=== PATIENT | male | born 1960 | race Caucasian/White ===

== ENCOUNTER 2016-10-01 05:41 | Day surgery (SDC) | payer OTHER ==
[~2016-10-01 05:41] MED LIST: ADAL40KI SQ; ALBU6.7H INH; ASPI-973 PO; CEFA1PIG IV; CHOL100045 PO; DOCU-41 PO; FOLI1CAP PO; FRSM80T PO; HYDR-4003 PO; HYDR2TAB28 PO; LACT1CAP73 PO; METO25TA99 PO; MULT-1018 PO; ONDA-53 PO; PANT40TA3 PO; SEVE800T10 PO; WARF2TAB PO
--- NOTE | 2016-10-01 09:15 | NUR ---
pt here for peripherally inserted central catheter removal. bedside finger stick performed at bedside 1.5. procedure performed at bedside by franc araujo at bedside. pressure held for 5 minutes, pt linda well. pt instructed to hold pressure if sudden pain or lump develop at site and then to call 911. pt agrees to understanding and following d/c instructions. vs 98.6 oral temp, 96%spo2, 87 hr, 130/79 bp.
--- NOTE | 2016-10-01 15:01 | DRSVH ---
PROCEDURE: Right PIC catheter removal. INDICATIONS: INFUSIONS FINISHED COMPARISON: None. TECHNIQUE: Informed, written consent from the patient was obtained prior to the procedure. The right chest wall PICC catheter stitches were cut, and the catheter was removed. Pressure was applied for he mostasis. FLUOROSCOPY TIME: 0 minutes IMPRESSION: Right chest wall PICC catheter removal. Dictated by: Aden Mejia M.D. on 10/01/2016 at 14:58 Approved by: Aden Mejia M.D. on 10/01/2016 at 14:59
== END 2016-10-01 23:59 | disposition home or self-care (01) ==
LOC: SOUO 05:41
PROVIDERS: ATTEND Radiology Diagnostic Radiology
DX: Z45.2 Encounter for adjustment and management of vascular access device (principal); Z86.19 Personal history of other infectious and parasitic diseases; Z95.2 Presence of prosthetic heart valve

== ENCOUNTER 2016-10-08 12:37 | Inpatient (IN) | payer OTHER ==
[~2016-10-08] VITALS: Ht 175.3 cm; Wt 87.0 kg
[2016-10-08 13:43] VITALS: BP 137/84; PULSE 85; RESP 22; O2SAT 97
[2016-10-08] MEDS ORDERED: Heparin 5,000 Unit/mL Inj IVPUSH ONE (13:50)
[2016-10-08] MEDS ORDERED: FOLI1CAP4 PO (13:58)
--- NOTE | 2016-10-08 13:58 | NUR ---
Admission Pt arrived to [facility] approx 13:45, accompanied by significant other. A&Ox3, denies pain/discomfort. Stat PTT ordered and then will initiate heparin gtt
[2016-10-08] MEDS ORDERED: Alum-Mag Hydrox-Simeth 30 mL Suspension PO PRN (15:40)
[2016-10-08] MEDS ORDERED: HYDROcodone-APAP 5-325 mg Tablet PO PRN (15:40)
[2016-10-08] MEDS ORDERED: Polyethylene Glycol (PEG) 17 Gm Powder PO PRN (15:40)
--- NOTE | 2016-10-08 16:12 | HP ---
[address] [address] HISTORY AND PHYSICAL PATIENT: NICHOL GARCÍA : 1960 MR#: [id number] ADMIT: 10/08/2016 JOB ID: [id number] DATE OF SERVICE: 10/08/2016 CARDIOLOGY CONSULTATION: CHIEF COMPLAINT: Subtherapeutic INR. HISTORY OF PRESENT ILLNESS: The patient is extremely complicated man. He is 56 years old. He has multiple cardiovascular issues including paroxysmal atrial fibrillation, history of VF cardiac arrest, intermittent complete heart block, ankylosing spondylitis, dual-chamber ICD, chronic immunosuppression of Humira. He was coughing since June 10. He was having worsening orthopnea, PND and pulmonary congestion. He contacted me on July 26 complaining of cough productive of white phlegm and then, he had a GERA, which showed endocarditis. He had hospitalization at [facility] August 05 through August 09, and was transferred to [facility] for valve replacement. His cultures grew Staph lugdunensis. So, basically, he had mechanical prosthetics in mitral and aortic positions. His goal INR is between 2.5 and 3.5. He also has AFib and cardiomyopathy. His EF is about 35%. He was seen in clinic on Tuesday, and his INR was 1.4. His warfarin was doubled from 4 mg daily to 8 mg daily. Today, he comes back in followup, and his INR is 1.5. It is a little bit puzzling why his INR is low, especially since on the 24 of September his rifampin and cefazolin were discontinued. So, technically, would actually expect INR to go up and instead it actually went down. It is a little bit not clear why. So, he denies any dyspnea on exertion but he does report significant fatigue. He has end-stage renal disease. He is not eligible for low-molecular weight heparin bridge, so we will be hospitalizing him for heparin bridge until we figure out the best way to achieve therapeutic INR. PAST MEDICAL HISTORY: 1. Complete heart block August 2012. Status post Biotronik dual-chamber permanent pacemaker. 2. VF arrest June 12, 2014. As a result, he was upgraded to a dual-chamber ICD, so he has three wires; right atrial Biotronik wire, right ventricular Biotronik pacing wire that has been capped, and a right ventricular defibrillator wire implanted June 12, 2014, and he has a Medtronic ICD generator. He has never been cathed. He had noninvasive ischemic evaluation January 01, 2016, which showed normal graded exercise stress test with myocardial perfusion imaging. No ischemia or prior infarct. Normal wall motion and LV systolic function. Decremental conduction at rapid rate, where he went from ventricularly sensed to ventricularly paced. 3. Ankylosing spondylitis previously on Humira, no on opioid pain meds. 4. 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 s/p extraction of previously placed pacing system and 3 wires; implant of left subpectoral ICD with tunneled epicardial pacing leads and shock coil; s/p DFT at 6. Paroxysmal atrial fibrillation, became persistent post op 7. Chronic RV pacing. 8. Chronic iritis. 9. cardiomyopathy - last EF 30-35% 10. ARF - after long heart surgery - on hemodialysis 11. anemia SOCIAL HISTORY: He is a lifetime nonsmoker but he has had some secondhand smoke exposure. He is accompanied by his . He works full-time in the [employer] department. He resides here in [place]. FAMILY HISTORY: Father with lung disease. He at age 56. Half brother with liver disease. Mother with heart disease. She at age 72. ALLERGIES: No known drug allergies. 1. Lasix 80 mg 3 times a day. 2. Metoprolol tartrate. He takes 25 mg in the morning and 50 mg at night. 3. pantoprazole and Vicodin as needed. 4. warfarin 8 mg every night. REVIEW OF SYSTEMS: No chest pain. No palpitations. + fatigue. + weight loss; dysgusia and poor appetitie. No bright red blood per rectum. No hematuria; very small residual urine production. No rash. No muscle weakness. + dizziness. No anxiety. He does have cough, shortness of breath, orthopnea, and PND. Otherwise, 10 point review of systems is negative. PHYSICAL EXAMINATION: A well-nourished man no apparent distress. Eyes: No scleral icterus. Scalp demonstrates some regions of alopecia on his scalp. Neck: Supple. No carotid bruits. Jugular venous distention is difficult to appreciate, and I do not see it in an obvious way on exam. Heart: PMI is nondisplaced. There is crisp mechanical s1 and crisp mechanical s2 Lungs: Clear. Abdomen: Soft, positive bowel sounds. No hepatosplenomegaly. Extremities: Show mild bilateral edema which is new Neurologic: Nonfocal. Musculoskeletal: Shows reduced range of motion in his neck. a/p: This is a very complex man admitted for management of subtherapeutic INR in the setting of mechanical prosthesis in mitral and aortic position. continue warfarin; increase dose to 10 mg daily; start heparin drip MTDD
[2016-10-08] MEDS: Heparin 25K Unit/500mL 0.45 NS 25,000 UNIT in IV Premix 1 EACH IV SCH (16:41)
[2016-10-08 17:01] LABS: INR 1.49 ratio
[2016-10-08 17:25] LABS: BASOPHILS % (AUTO) 0.7 % (0-3); EOSINOPHILS % (AUTO) 2.1 % (0-5); MONOCYTES % (AUTO) 8.8 % (4-12); Mean Corpuscular Hemoglobin 29.2 pg (27.0-35.0); Mean Corpuscular Volume 90.3 fL (81-100); NEUTROPHILS % (AUTO) 81.1 % (40-74); Platelet Count 124 bil/L (150-400)
[2016-10-08] MEDS ORDERED: 0.9% Sodium Chloride 250 ML ONE (17:59)
[2016-10-08] MEDS: Heparin 5,000 Unit/mL Inj IVPUSH PRN (18:25)
--- NOTE | 2016-10-08 18:38 | NUR ---
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
[2016-10-08 18:48] VITALS: BP 139/91; PULSE 83; RESP 18; O2SAT 97
--- NOTE | 2016-10-08 18:52 | PCM.CONPHA ---
Subjective Date of Service: Oct 08, 2016 Requesting Provider: Radha Knox MD Reason for Pharmacy Consult: Anticoagulation Management Objective Vital Signs Date Time Temp Pulse Resp B/P Pulse Ox O2 Delivery O2 Flow Rate FiO2 10/08/16 13:43 36.4 85 22 137/84 97 Room Air Weight (Kilograms): 87.000 Height (Feet): 5 Height (Inches): 9.00 Test 10/08/16 16:20 10/08/16 16:37 10/08/16 17:21 10/08/16 17:24 Prothrombin Time 16.1sec (8.1-12.5) Prothromb Time International Ratio 1.49ratio Activated Partial Thromboplast Time 36.8sec (22.8-33.0) Hold Moreno Top Tube Received (Received) White Blood Count 6.8th/mm3 (3.8-10.1) Red Blood Count 2.88mil/mm3 (4.40-5.80) Hemoglobin 8.4g/dL (13.8-17.2) Hematocrit 26.0% (41.0-50.0) Mean Corpuscular Volume 90.3fL (81-100) Mean Corpuscular Hemoglobin 29.2pg (27.0-35.0) Mean Corpuscular Hemoglobin Concent 32.3% (32.0-37.0) Red Cell Distribution Width 15.4% (12.3-15.4) Platelet Count 124bil/L (150-400) Neutrophils (%) (Auto) 81.1% (40-74) Lymphocytes (%) (Auto) 7.2% (14-46) Monocytes (%) (Auto) 8.8% (4-12) Eosinophils (%) (Auto) 2.1% (0-5) Basophils (%) (Auto) 0.7% (0-3) Sodium Level 136mEq/L (134-144) Potassium Level 3.9mEq/L (3.5-5.2) Chloride Level 96mEq/L (97-108) Carbon Dioxide Level 25mmol/L (18-29) Blood Urea Nitrogen 24mg/dL (6-24) Creatinine 6.08mg/dL (0.76-1.27) Estimat Glomerular Filtration Rate 10mL/min (>59) Glucose Level 83mg/dL (60-99) Calcium Level 9.4mg/dL (8.5-10.1) Total Bilirubin 0.4mg/dL (0.0-1.2) Aspartate Amino Transf (AST/SGOT) 19U/L (0-50) Alanine Aminotransferase (ALT/SGPT) 8U/L (0-44) Alkaline Phosphatase 90U/L (25-150) Total Protein 6.5g/dL (6.4-8.4) Albumin 3.4g/dL (3.4-5.0) Assessment/Plan Assessment/Plan Warfarin management per pharmacy Indication: mechanical heart valves (mitral, aortic) and atrial fibrillation. INR goal: 2.5-3.5 Home dose: per Dr. Knox's note, patient was increased to 8 mg daily on 10/04 (was previously on 4 mg daily but found to have INR of 1.4). INR today: 1.49 Patient is anticoagulated with heparin drip. Note that patient was on rifampin until 09/24/16. Rifampin is a strong LXY486 inducer; causing decreased efficacy of warfarin. See below for information from [facility] regarding this drug interaction. Anticipate continued drug interaction and patient may require high doses of warfarin for weeks. INR is subtherapeutic. Per Dr. Knox, give warfarin 10 mg today. Ordered INR labs for 10/09/16, 10/10/16. Pharmacy to continue to monitor and will dose warfarin daily. Thank you, Naima Bryant Pharmacist Warfarin and rifampin drug interaction from [facility] [employer] -- DELAYED ONSET. "When used with rifampin, high doses of warfarin (20 mg/day or greater) may be needed to maintain adequate anticoagulation (Leila et al, 2007; Chucho, 1996) and a 50% reduction of the warfarin dose should be considered within 1 to 2 weeks after rifampin is discontinued (Zhao & Lisa, 2001)with further reduction if necessary thereafter (Leila et al, 2007). Monitor patients for signs and symptoms of subtherapeutic anticoagulation (eg, redness or swelling of legs or extremities, sudden onset shortness of breath)." Case reports from [facility]: Ex 1: "[Patient's] warfarin dosage was changed many times over the next several weeks (range, 5 to 10 mg/day) and about 2 months after rifampin was stopped, the patient was stabilized (INR range, 2.2 to 3)." Ex 2: "When rifampin was discontinued after completing 9 months of therapy, the patient's warfarin dose was slowly reduced from 20 mg/day over 4 to 5 weeks in an attempt to achieve a therapeutic INR (range, 1.6 to 4.1)" Naima Bryant Oct 08, 2016 18:52
[2016-10-08 20:45] VITALS: BP 136/85; PULSE 84; RESP 18; O2SAT 98
[2016-10-09] VITALS (14 sets, daily range): BP systolic 128–149; BP diastolic 84–93; PULSE 62–87; RESP 18–20; O2SAT 96–98
[2016-10-09 02:50] LABS: INR 1.56 ratio
[2016-10-09] MEDS: Ondansetron 2 mg/mL 2 mL Inj IVPUSH PRN ×2 (05:51→11:04)
--- NOTE | 2016-10-09 06:06 | NUR ---
Pain c/o generalized pain x1 this shift. Prn Dilaudid 4mg PO administered and effective. No further complaints noted this shift.
--- NOTE | 2016-10-09 07:29 | PCM.PHAPRO ---
Progress Date of Service: Oct 09, 2016 Warfarin dosing A/ INR is subtherapeutic at 1.56 (goal of 2.5-3.5). P/ Continue with 10 mg dose today and re-evaluate tomorrow. Nael Figueroa Oct 09, 2016 07:29
[2016-10-09] MEDS: Vitamin B Complex/Vit C Tablet PO SCH (07:53)
[2016-10-09] MEDS: Pantoprazole 40 mg ER24 Tablet PO SCH (07:54)
[2016-10-09] MEDS: MeTOProlol XL 25 mg ER24 Tablet PO SCH (07:54)
[2016-10-09] MEDS: Heparin 5,000 Unit/mL Inj IVPUSH PRN (08:55)
--- NOTE | 2016-10-09 09:02 | NUR ---
Heparin gtt Current rate for Heparin gtt: 950units/hr (19ml/hr). PTT drawn at 0800, result 45.9. Per Heparin gtt protocol, rate increased 50 units for a total of 1000u/hr (20ml/hr). Also 1000 unit bolus of Heparin given. Next PTT check at 1400.
--- NOTE | 2016-10-09 10:13 | NUR ---
Social Work: Screening Data: Pt is a 56 y/o male admitted for mitralstenosis. Pt's PCP is Dr López, pt's insurance is [employer]. Readmit score not listed. No d/c planning needs anticipated at this time. ORNAMENTAL PLASTERER HELPER will continue to follow if needs arise. Assessment: Pt who is independent at baseline. Plan: Pt will d/c home via POV when medically stable. No d/c planning needs anticipated at this time. ORNAMENTAL PLASTERER HELPER will continue to follow if needs arise. SAY Casillas
--- NOTE | 2016-10-09 12:00 | NUR ---
Blood transfusion Per nephrology, 2 units PBRC to be infused during dialysis.
--- NOTE | 2016-10-09 13:15 | PROG NOTE ---
[address] [address] PROGRESS NOTE PATIENT: NICHOL GARCÍA : 1960 MR#: [id number] ADMIT: 10/08/2016 JOB ID: [id number] DATE: 10/09/2016 SUBJECTIVE: This morning, he was nauseated. He vomited once. He says that food does not taste good. The only thing he wants to eat are corn flakes with cold milk or [place] ore[place] ice cream bars. Everything else taste terrible. His is concerned that he has only consumed 300 calories per day because of this problem. CURRENT MEDICATIONS: Include. 1. Heparin drip per ACS protocol. 2. He takes Dilaudid as needed. 3. Renagel three times a day with food. 4. Lasix 80 mg daily. 5. Metoprolol tartrate 25 mg daily. 6. Zofran as needed for nausea. 7. Warfarin 10 mg daily. He is a very pleasant man. He is afebrile. Temperature 36.7, blood pressure 135/88, pulse 87 beats per minute. He is in AFib. He is saturating 97% on room air. Eyes: No scleral icterus. Heart: Mechanical S1 and S2. [place] clicks. Lungs are clear. Abdomen is soft with positive bowel sounds and there is no hepatosplenomegaly present. Extremities show no edema whatsoever. LABORATORIES: Reviewed. He has stable anemia. His hematocrit was 23% in September 2016, and is 26% now. His platelet count fell from 243 in September to 124 currently. Cultures have been ordered to be collected during hemodialysis and they are pending. INR was most recently 1.6 yesterday. His most recent PTT was 46. In his liver function tests are within normal limits. ASSESSMENT AND PLAN: This is a 56-year-old man with renal insufficiency. He has not made any urine so far in the course of hospitalization. He has renal insufficiency on dialysis and the problem we are having is dysgeusia and difficulty eating. We have several options including Marinol, Megestrol or medical marijuana. I am a little bit concerned about his falling platelets. He does not have fevers or chills. No obvious evidence of infection. His white count is stable. I am also concerned that his anemia is not improving and I appreciate Dr. Peralta giving him some blood. Thank you very much for the opportunity to evaluate him. Will monitor him closely.
--- NOTE | 2016-10-09 13:55 | CONS ---
[address] [address] CONSULTATION REPORT PATIENT: NICHOL GARCÍA : 1960 MR#: [id number] ADMIT: 10/08/2016 JOB ID: [id number] DATE OF SERVICE: 10/09/2016 RENAL CONSULTATION: The patient is a rather complex unfortunate 56-year-old white male who was admitted for subtherapeutic INR. He also has a history of end-stage renal disease and renal consultation is being sought for further evaluation and management of his end-stage renal disease. He has a history of atrial fibrillation, V fib arrest, and subsequently was transferred to [facility] in August of 2016 where he underwent a mitral and aortic valve replacement. He was on ECMO for approximately 24 hours. Postoperatively he had a somewhat stormy course which was complicated by acute tubular necrosis. He had a significant improvement in his general condition. However, he has remained on three times a week dialysis since that time. He was subsequently discharged from the hospital approximately a month ago and has been getting three times a week dialysis. We have closely followed his lab and he has had some increasing urine output. However, his BUN and creatinine have remained quite elevated. He has been on warfarin therapy for his multiple cardiac issues. He was recently treated with antibiotics for a staphylococcal infection and once these were discontinued, his PT and INR have remained significantly subtherapeutic. He is closely followed by Dr. Knox from Cardiology, and despite increases in the doses, his INR remains subtherapeutic. He was subsequently admitted for heparin bridging until Dr. Knox can get his INR therapeutic. He normally dialyzes on Tuesday, and Tuesday, and his last dialysis was on . Although he remains somewhat weak since discharge from the hospital, he has had some increase in appetite and some general increase in his activities of daily living. PAST MEDICAL HISTORY: Is significant for multiple cardiac issues which include a VFib arrest in 2013, a complete heart block requiring a pacemaker insertion, mitral and aortic valve replacement secondary to endocarditis. He has a history of ankylosing spondylitis for which he has been on Humira, end-stage renal disease, hypertension with hypertensive heart disease and hypertensive nephrosclerosis. PAST SURGICAL HISTORY: Is significant for placement of a pacemaker and ICD along with the valve surgery as noted above. He has also had a tunnel catheter placed for which we do dialysis through. ALLERGIES: He is not allergic food or any medication. 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 FAMILY HISTORY: Noncontributory. REVIEW OF SYSTEMS: Is detailed above. Otherwise is noncontributory. He has not had any severe headache, chest pain, shortness of breath, lower extremity edema, nausea, vomiting, diarrhea, rash or difficulty in urination. MEDICATIONS: His medications at the time of my evaluation, include warfarin, metoprolol, furosemide, Protonix, Renvela and a heparin drip. PHYSICAL EXAMINATION: Revealed a well-developed, surprisingly healthy appearing 56-year-old white male who was alert and oriented x3, in no distress at the time my evaluation. Temperature was 36.7. Blood pressure is 135/80 with a pulse rate of 87. HEENT examination is remarkable for pale sclerae. Neck is supple without adenopathy, thyromegaly or jugular venous distention. Lungs are clear to auscultation. Heart was irregularly irregular with a loud mechanical murmur from his heart valves. Abdomen is soft without any tenderness, rebound, guarding, masses or hepatosplenomegaly. Extremities do not show any evidence of any clubbing, cyanosis or edema. Skin turgor is good and there is no evidence of any rashes. LABORATORY EXAMINATION: Yesterday at time of admission, his sodium is 136, potassium 3.9, chloride 96, CO2 25, BUN and creatinine are 24 and 6. Liver function studies were normal. His white count at time his admission was 6.8, and platelet count was slightly low at 124. This morning his hemoglobin and hematocrit were 8 and 25.6. IMPRESSION: 1. End-stage renal disease-dialysis dependent secondary to acute cortical necrosis. 2. Anemia secondary to chronic kidney disease. RECOMMENDATION: I would like to get two sets of blood cultures along with type and cross for 2 units of packed red cells to be given during dialysis. He is to be dialyzed today for 4 hours on a Revaclear Max dialyzer and a 3 potassium bath. We will not be giving him any heparin, but will be giving him 2 units of blood and take 2-3 kg of fluid off. Once again, I would like to thank you for allowing me to participate in the care of this most pleasant and interesting patient and I will be following him closely with you.
--- NOTE | 2016-10-09 14:35 | NUR ---
Off unit Pt off unit to dialysis on MOC, transferred in bed. Heparin PTT drawn prior to transfer. Addendum: 10/09/16 at 1927 by BEVERLY KHAN RN Pt back on unit at 1850, report given to MILLA ALCANTARA.
--- NOTE | 2016-10-09 14:56 | DRSVH ---
[facility] [address] [place] [address] Echocardiogram Report Name: NICHOL GARCÍA DStudy Williams e: 10/09/2016 Height: 69 in Hospital Exam Location: [facility] Weight: 192 lb Gender: Male BSA: 2.0 m2 : 1960 Age: 56 yrs BP: 135/88 mmHg Reason For Study: CHF Ordering Physician: Performed By: Katy Daniels Referring Physician: DR. CRUZITO WINTERS Interpretation Summary Afib with bi iV pacing. Normal LV size; mild concentric LVH; there is significant dyssynchrony. EF is 35-40% with particular apical and distal septal dyskinesis. Moderate LA enlargement. Mechanical aortic and mitral valve with moderate MS - mean gradient is 9 mm Hg. Compared to prior GERA 08/05/2016, both mitral and aortic valves have been replaced with mechanical prosthetics. Cardiomyopathy is new. Afib is new Procedure: A two-dimensional transthoracic echocardiogram with color flow and Doppler was performed. The study quality was technically difficult. A contrast injection of Definity was performed to improve assessment of LV function. Contrast was injected into an intravenous site in the right arm. A total of 4 cc of contrast was given. Comparison is made with the echocardiogram of 08-05-2016. The patient was in sinus during the exam. The patient did well with the Definity Contrast. Left Ventricle: The left ventricle is normal in size. Left ventricular wall thickness is mildly increased. The LVOT diameter is 2.1 cm. Left ventricular systolic function is mildly reduced. Right Ventricle: The right ventricle grossly appears normal in size with probable normal systolic function. Atria: The right atrium is moderately dilated. There is no Doppler evidence for an atrial septal defect. Mitral Valve: There is a mechanical mitral valve. The prosthetic mitral valve is well-seated. The mean mitral valve pressure gradient is 9 mmHg. There is no mitral regurgitation noted. Aortic Valve: There is a mechanical aortic valve. The prosthetic aortic valve is well-seated. The calculated aortic valve area is 1.4 cm2. The peak aortic velocity is 2.1 m/sec. The aortic valve mean gradient is 9 mmHg. Compared to the prior echo study, the aortic stenosis is a new finding. No aortic regurgitation is present. Tricuspid Valve: The tricuspid valve leaflets are thin and pliable. There is trace tricuspid regurgitation. The right ventricular systolic pressure is estimated at 36 mmHg assuming a right atrial pressure of 3 mm Hg. Pulmonic Valve: The pulmonic valve is not well seen, but is grossly normal. There is no pulmonic valvular regurgitation. Great Vessels: The IVC is of normal diameter and collapses greater than 50% with a sniff. This suggests a low right atrial pressure of 3 mm Hg. Pericardium/ Pleura There is no pericardial effusion. There is moderate right sided pleural effusion. MMode/2D Measurements & Calculations LVIDd: 4.6 cm LA dimension: 5.5 cm RA long axis LVOT diam: 2.1 cm LVIDs: 4.0 cm IVC diam: 2.0 cm Ao root diam FS: 12.5 % RA area IVSd: 1.2 cm asc Aorta Diam LVPWd: 1.1 cm : 23.8 cm RA vol Ao Arch Diam (Prox : 90.6 ml Trans): 3.3 cm RA : 44.6 mm2 LV wright. diameter/BSA LV sys. diameter/BSA (cm/m^2): 2.3 (cm/m^2): 2.0 Doppler Measurements & Calculations Ao V2 max MV E max brady MV E/A: 3.0 TR max brady : 213.6 cm/sec : 249.1 cm/sec : 286.4 cm/sec Ao max PG MV A max brady TR max PG : 18.3 mmHg : 82.4 cm/sec : 32.8 mmHg Ao mean PG MV P1/2t: 47.1 msec PA V2 max MVA(VTI): 1.1 cm2 : 88.3 cm/sec LVOT Max Brady PA mean PG : 95.1 cm/sec CHAPARRITA(I,D): 1.4 cm PA Accel Time sev ratio : 0.06 sec MV V2 mean MV P1/2t max brady Ao V2 mean LV V1 max PG : 140.5 cm/sec : 141.9 cm/sec MV mean PG Ao V2 VTI LV V1 VTI MVA(P1/2t): 4.7 cm2 : 13.5 cm MV V2 VTI: 41.6 cm MV dec time CHAPARRITA(V,D): 1.5 cm2 : 0.16 sec PA V2 mean CHAPARRITA indexed to BSA : 56.2 cm/sec (cm^2/m^2): 0.70 Reading Physician:02:56 PM
--- NOTE | 2016-10-09 14:56 | NUR ---
Dialysis Patient to dialysis. Report received from Nerissa Cleveland RN. Heparin infusing. at bedside. Labs here to draw type and cross and other labs. Informed of plan of care.
--- NOTE | 2016-10-09 15:01 | NUR ---
Heparin gtt Rec'd result for PTT: 51.3. Spoke with MARICRUZ Diaz on [facility] with PTT result, per protocol increase infusion by 25 units/hr for a total delivery of 1025 units/hr. Next PTT scheduled to be drawn at 1999.
[2016-10-09 17:36] LABS: INR 1.82 ratio
--- NOTE | 2016-10-09 18:50 | NUR ---
Dialysis note: 4 hrs tx. 3800 ml total UF (3000 ml net UF + 800 ml for blood). Right catheter, dsg changed, no s/s of infection noted. T&C, PT/INR, and BC x 2 drawn. Pls see DTR for VS details. Qb 400-500. No extra heparin given, already on heparin drip. O2 @ 2L via NC on. 2 units PRBC given with no problems. Tolerated tx, slept at intervals. Catheter flushed, heparin dwelled and secured. Report given to Emily Llanos RN. Stable at time of transfer.
[2016-10-09] MEDS: Heparin 25K Unit/500mL 0.45 NS 25,000 UNIT in IV Premix 1 EACH IV SCH (20:29)
[2016-10-09] MEDS: 0.9% Sodium Chloride 250 ML IV SCH (20:51)
[2016-10-10 02:00] VITALS: BP 140/78; PULSE 78; RESP 20; O2SAT 97
--- NOTE | 2016-10-10 02:17 | NUR ---
BLOOD DRAW BLOOD DRAWN FROM y SITE OF TUNNEL CATHETER (OKAYED BY PHYSICIAN) 20 ML NS FLUSH. STERILE TECHNIQUE. NS CONTINUES AT TKO INTO TUNNEL CATH PATIENT DENIES DISCOMFORT. RESTING.
[2016-10-10 05:17] VITALS: BP 145/91; PULSE 85; RESP 20; O2SAT 96
[2016-10-10 06:18] VITALS: PULSE 85
[2016-10-10] MEDS: Ondansetron 2 mg/mL 2 mL Inj IVPUSH PRN ×2 (06:22→12:09)
--- NOTE | 2016-10-10 06:32 | NUR ---
nausea patient nauseous this morning. no emesis. states "it happens every morning right when i wake up." medicated with zofran 8mg iv push. at bedside. give emotional support.
[2016-10-10] MEDS: Vitamin B Complex/Vit C Tablet PO SCH (08:14)
[2016-10-10] MEDS: MeTOProlol XL 25 mg ER24 Tablet PO SCH (08:14)
[2016-10-10] MEDS: Pantoprazole 40 mg ER24 Tablet PO SCH (08:14)
[2016-10-10 08:43] VITALS: BP 132/80; PULSE 87; RESP 18; O2SAT 95
[2016-10-10 09:08] LABS: INR 2.46 ratio
[2016-10-10] MEDS: 0.9% Sodium Chloride 250 ML IV SCH (10:07)
--- NOTE | 2016-10-10 10:08 | PCM.PHAPRO ---
Progress Date of Service: Oct 10, 2016 Warfarin dosing A/ INR is near therapeutic today at 2.46 (goal 2.5-3.5). Sharp rise from yesterday. P/ Give reduced 4mg of warfarin today. Nael Figueroa Oct 10, 2016 10:07
[2016-10-10 10:34] VITALS: PULSE 85
--- NOTE | 2016-10-10 10:39 | PCM.DICHF ---
CHF Discharge Instructions Dates of Hospitalization Date of Hospital Admission Oct 08, 2016 at 13:33 Providers Admitting Physician: Radha Knox MD Primary Care Physician: Kirill López DO Attending Physician: Radha Knox MD Diagnosis at Time of Discharge Labs Ejection Fraction 35-40% Laboratory Tests Test Range/Units 10/08/16 16:37 10/08/16 17:24 Hold Moreno Top Tube Received Received Sodium Level 134-144 mEq/L 136 Potassium Level 3.5-5.2 mEq/L 3.9 Chloride Level 97-108 mEq/L 96 Carbon Dioxide Level 18-29 mmol/L 25 Blood Urea Nitrogen 6-24 mg/dL 24 Creatinine 0.76-1.27 mg/dL 6.08 Estimat Glomerular Filtration Rate >59 mL/min 10 Glucose Level 60-99 mg/dL 83 Calcium Level 8.5-10.1 mg/dL 9.4 Total Bilirubin 0.0-1.2 mg/dL 0.4 Aspartate Amino Transf (AST/SGOT) 0-50 U/L 19 Alanine Aminotransferase (ALT/SGPT) 0-44 U/L 8 Alkaline Phosphatase 25-150 U/L 90 Total Protein 6.4-8.4 g/dL 6.5 Albumin 3.4-5.0 g/dL 3.4 Discharge Medications Other Medication Instructions You have received instructions on the medications your physician has prescribed at discharge. A list of these medications has been provided to you. Keep this and a list of all current medications with you. Keep the dates when you received the Flu and Pneumococcal (Pneumonia) Vaccines. Last known date of receiving Flu Vaccine 2015 Last known date of receiving Pneumococcal (Pneumonia) Vaccine decline Diet CHF Discharge Diet: Renal Diet Diet Instructions CHF Low Salt diet ( 2 grams or less sodium/day) Choose foods and drinks with low or no salt. Remove salt shaker from the table. Read Nutritional Facts labels. Activity CHF Discharge Activity: Activity as energy allows Follow Up Plan Follow Up Plan see Vik on Tuesday as scheduled See her about once a week afterwards See me early November 2016 (Sanjana will call you with time and date) to discuss cardioversion Report or call your Doctor text me or call me if something is bothering you Radha Knox MD Oct 10, 2016 10:39
[2016-10-10] MEDS ORDERED: HYDR2TAB27 PO (10:43)
[2016-10-10] MEDS ORDERED: METO25TA99 PO (10:43)
[2016-10-10] MEDS ORDERED: WARF4TAB6 PO (10:43)
--- NOTE | 2016-10-10 12:26 | PCM.PNMED ---
Subjective Date of Service Oct 10, 2016 Subjective Patient is doing well today with more appropriate PT and INR times. He denies any chest pain, shortness of breath, nausea or vomiting. Exam Vital Signs Vital Sign - Last Date Time Temp Pulse Resp B/P Pulse Ox O2 Delivery O2 Flow Rate FiO2 10/10/16 10:34 85 10/10/16 08:43 36.5 18 132/80 95 Room Air Intake and Output 10/09/16 10/09/16 10/10/16 Cumulative From/Thru 15:00 23:00 07:00 10/08/16 13:43 - 10/10/16 06:40 Intake Total 1096 ml 640 ml 2794 ml Output Total 3800 ml 125 ml 0 ml 3925 ml Balance -3800 ml 971 ml 640 ml -1131 ml Intake Oral 236 ml 400 ml 1336 ml IV Total 100 ml 240 ml 698 ml Packed Cells 760 ml 760 ml Output Urine Total 125 ml 0 ml 125 ml Ultrafiltrate 3800 ml 3800 ml # Bowel Movements 1 Exam Lungs are clear to auscultation. Heart was irregularly irregular abdomen is soft without any tenderness rebound guarding masses or hepatosplenomegaly. She does not show any evidence of any clubbing, cyanosis, or edema. 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 VTE Mechanical Devices: Venous Foot Pump Temo Peralta DO Oct 10, 2016 12:25
--- NOTE | 2016-10-10 12:58 | NUR ---
Social Work: Discharge Data: Pt is on day 2 of hospitalization. EMR reviewed. D/C orders are in. No d/c planning needs at this time. DIRECTOR OF COUNTERINTELLIGENCE will continue to follow if needs arise. Assessment: Pt who is independent at baseline. Plan: Pt will d/c home via POV today. No d/c planning needs at this time. DIRECTOR OF COUNTERINTELLIGENCE will continue to follow if needs arise. SAY Casillas
--- NOTE | 2016-10-10 13:18 | NUR ---
Didalysis catheter Dialysis catheter red port flushed with 10 ml NS then 1.8 ml 1000u of heparin was instilled. Blue cap replaced and ends taped together. Arlene Alcala RN
--- NOTE | 2016-10-10 13:37 | DIS ---
[address] [address] DISCHARGE SUMMARY PATIENT: NICHOL GARCÍA : 1960 MR#: [id number] ADMIT: 10/08/2016 JOB ID: [id number] DIS: 10/10/2016 DISCHARGE DIAGNOSES: 1. Subtherapeutic international normalized ratio in the setting of mechanical mitral prosthesis. 2. Anemia. 3. Renal failure. 4. History of endocarditis. 5. Nausea and vomiting. 6. Dysgeusia and poor appetite. PROCEDURES PERFORMED: 1. Echocardiogram, October 09, 2016, showed ejection fraction 35%, 40%, with apical and distal septal dyskinesis and significant dyssynchrony, moderate left atrial enlargement. Mechanical aortic mitral valve with moderate mitral stenosis. Mean gradient is 9 mmHg. Compared to prior GERA, both mitral and aortic valves have been replaced with mechanical prosthetics/ Cardiomyopathy is new and AFib is new. 2. He had hemodialysis. 3. He had labs. INR on admission was 1.8. INR at discharge was 2.5. HOSPITAL COURSE: The patient was admitted from clinic. He was treated with heparin drip. Once INR reached therapeutic threshold, heparin drip was stopped. His warfarin dose at home was 8 mg daily. I increased it to 10 mg daily and he seemed to respond well to that. He had uneventful hemodialysis. Therefore, he is discharged home in stable condition on the following medications. 1. Lasix four times a week on nondialysis days, Tuesday, , Tuesday, and Tuesday. 2. Metoprolol succinate. I will have him take 25 mg in the morning rather than the current dose of 25 in the morning and 50 at night. 3. Protonix 40 mg daily. 4. Dilaudid. He says he takes 4 mg pills, 2 mg in the morning and 2 mg at night. I am not sure whether that is the case, and I will have to verify the dose with his . 5. Renagel. 6. Warfarin 8 mg daily. FOLLOWUP PLAN: He will follow up with , the pro-time nurse, on Tuesday, October 11, 2016. He will follow up with me in about a month. Thank you very much for the opportunity to evaluate him.
--- NOTE | 2016-10-10 13:59 | NUR ---
Discharge: Patient discharged to home @ approx 1330. Peripheral IV d/c'd intact, telemetry removed, dialysis equipment technician notified. IV therapy de-accessed tunnel cath. Personal belongings sent home with patient. Reviewed new prescriptions, home medication list, d/c instructions and follow up appointments. Patient verbalized understanding. Escorted to main entrance via wheelchair accompanied by RFID ENGINEER.
== END 2016-10-10 13:15 | disposition home or self-care (01) | DRG 947 ==
LOC: MPC 13:33
PROVIDERS: ADMIT Internal Medicine; ATTEND Internal Medicine
PROC: 5A1D00Z (ICD-10-PCS; principal; 2016-10-09)
PROC: 30233N1 Transfusion of Nonautologous Red Blood Cells into Peripheral Vein, Percutaneous Approach (ICD-10-PCS; 2016-10-09)
DX: R79.1 Abnormal coagulation profile (principal); N18.6 End stage renal disease; N17.1 Acute kidney failure with acute cortical necrosis; Z95.810 Presence of automatic (implantable) cardiac defibrillator; Z95.2 Presence of prosthetic heart valve; Z79.01 Long term (current) use of anticoagulants; Z99.2 Dependence on renal dialysis; D63.1 Anemia in chronic kidney disease

== ENCOUNTER 2017-03-27 08:16 | Inpatient (IN) | payer OTHER, MEDICARE ==
[~2017-03-27] VITALS: Ht 175.3 cm; Wt 81.2 kg
[~2017-03-27 08:16] MED LIST changes: -ADAL40KI SQ; -ALBU6.7H INH; -CEFA1PIG IV; -CHOL100045 PO; -DOCU-41 PO; -FOLI1CAP PO; +FOLI1CAP4 PO; -HYDR-4003 PO; -HYDR2TAB28 PO; -LACT1CAP73 PO; -METO25TA99 PO; -MULT-1018 PO; -WARF2TAB PO
[2017-03-27 08:28] VITALS: PULSE 75
[2017-03-27 08:57] VITALS: BP 114/66; PULSE 79; RESP 16; O2SAT 97
[2017-03-27] MEDS ORDERED: metoprolol PO (09:21)
[2017-03-27] MEDS ORDERED: WARF7.5T4 PO (09:21)
[2017-03-27] MEDS ORDERED: Metoprolol PO (09:21)
[2017-03-27] MEDS ORDERED: HYDR4TAB PO (09:21)
[2017-03-27] MEDS ORDERED: CHOL100045 PO (09:21)
[2017-03-27] MEDS ORDERED: Ondansetron 2 mg/mL 2 mL Inj IVPUSH PRN (09:40)
[2017-03-27] MEDS ORDERED: Alum-Mag Hydrox-Simeth 30 mL Suspension PO PRN (09:40)
[2017-03-27] MEDS: Sodium Chloride LOK Flush 10 mL Syringe IVFLUSH SCH ×2 (09:40→16:28)
[2017-03-27 10:06] LABS: BASOPHILS % (AUTO) 0.4 % (0-3); EOSINOPHILS % (AUTO) 0.7 % (0-5); MONOCYTES % (AUTO) 9.6 % (4-12); Mean Corpuscular Hemoglobin 30.3 pg (27.0-35.0); Mean Corpuscular Volume 88.1 fL (81-100); NEUTROPHILS % (AUTO) 80.7 % (40-74); Platelet Count 133 bil/L (150-400)
[2017-03-27 10:13] LABS: INR 1.36 ratio
--- NOTE | 2017-03-27 10:18 | NUR ---
Direct admit to room 2000 for heparin infusion prior to PD cath placement on Tuesday. Alert and oriented, no deficits. Tele applied, IV placed per IVT per pt request.
[2017-03-27 10:23] LABS: Magnesium 1.8 mg/dL (1.6-2.6)
[2017-03-27] MEDS ORDERED: Heparin 5,000 Unit/mL Inj IVPUSH ONE (12:00)
[2017-03-27] MEDS ORDERED: Heparin 25K Unit/500mL 0.45 NS 25,000 UNIT in IV Premix 1 EACH IV SCH (12:00)
--- NOTE | 2017-03-27 12:09 | PCM.HPCARD ---
Subjective Date of service Mar 27, 2017 Primary Provider: Admitting Physician: Jose A Posadas MD Primary Care Physician: Kirill López DO Attending Physician: Jose A Posadas MD Admit Status: Direct Admit Chief Complaint: Chief Complaint: Patient need bridging History of Present Illness: This is a very pleasant 56-year-old male with history of multiple cardiovascular comorbidities including paroxysmal atrial fibrillation, history of ventricular fibrillation cardiac arrest, transient complete heart block, history of endocarditis with status post aVR and MVR with mechanical prostheses , status post AICD dual-chamber, nonischemic cardiopathy with an EF around 35-40 % and known cardiac issues are ankylosing spondylitis, chronic ALEJANDRA, history of traumatic brain injury. The patient has been very stable since his cardiothoracic surgery back in September 2016. The patient continues to work for a [employer] in [place]. Patient is able to continue with his mild to moderate demand activities. His last interrogation of his pacemaker shows no evidence of significant atrial fibrillation with ventricular pacing near 99% and atrial pacing at 75%. His thoracic impedance based on his device shows no evidence of increase thoracic fluid retention. No therapies or alerts as per device. The patient also has developed end-stage renal disease after his cardiac arrest. Currently he has a subclavian dialysis catheter and initially wished to proceed with an AV fistula but it was deemed that he would not be a great candidate based on his arteriovenous anatomy. Hence, the patient has decided to proceed with peritoneal dialysis catheter. Because of his history of end- stage renal disease the patient cannot be bridge of Lovenox prior to his procedure hence he is directly admitted to the hospital for IV heparin/bridging. The patient denies any symptoms that are concerning for active CHF, cardiac arrhythmias, or angina. He has no symptoms such as PND, orthopnea, palpitations , syncope, lower extremity edema. Review of Systems Review of Systems CONSTITUTIONAL: Negative for fever, weight loss or weight gain. HEENT: Eyes: Negative for glaucoma or cataracts. Ears: Negative pain or loss of hearing. Nose: Negative for nasal congestion. Negative for rhinorrhea or postnasal drip. Mouth: Negative for false teeth. Throat: Negative for masses or hoarseness. Positive for snoring. CARDIOVASCULAR: Negative for chest pain or palpitations, near syncope, syncope, PND, or orthopnea. RESPIRATORY: Negative for shortness of breath, hemoptysis, COPD, cough. GASTROINTESTINAL: Negative for nausea, vomiting, diarrhea or heartburn. GENITOURINARY: Negative for dysuria. MUSCULOSKELETAL: Negative for osteoarthritis. SKIN: Negative for rashes. NEUROLOGIC: Negative for headaches, blurry vision, CVA, mental status changes. PSYCHIATRIC: Negative for depression. Negative for daytime sleepiness or insomnia. ENDOCRINE: Negative for diabetes or thyroid abnormalities. HEMATOLOGIC: Positive for anemia secondary to end-stage renal disease. PMH Past Medical History See history of present illness above. Allergies: Coded Allergies: No Known Allergies (Verified Allergy, Unknown, 03/27/17) Family History Family History There is history of lung cancer and diabetes in his family. His father apparently had lung cancer at age of 56. His half-brother is alive and well but has liver disease. Social History Hx Alcohol Use: Yes (occasional)Hx Substance Use: No Smoking Status: Never Smoker Exam Vital Signs Vital Sign - Last Date Time Temp Pulse Resp B/P Pulse Ox O2 Delivery O2 Flow Rate FiO2 03/27/17 08:57 36.8 79 16 114/66 97 Room Air General: Pleasant Cooperative Skin: Warm & dry to touch Head: Normocephalic No tenderness Neck: No JVD Ears, Nose & Throat: Ears no gross abnormalities Nose no gross abnormalities Chest: Clear auscultation w/o rales/wheeze Cardiac: Regular rhythm Mcdonough prosthetic valve sounds Pulses: Pulses full/equal all extremities Abdomen: Soft, non-distended, non-tender Extremities: Warm w/o deformities,erythema noted Neurological: Alert & oriented No gross motor or sensory deficits Psychological: Affect & interaction appropriate Lab and Diagnostics Labs CBC Test 03/27/17 09:00 White Blood Count 6.8th/mm3 (3.8-10.1) Red Blood Count 4.03mil/mm3 (4.40-5.80) Hemoglobin 12.2g/dL (13.8-17.2) Hematocrit 35.5% (41.0-50.0) Mean Corpuscular Volume 88.1fL (81-100) Mean Corpuscular Hemoglobin 30.3pg (27.0-35.0) Mean Corpuscular Hemoglobin Concent 34.4% (32.0-37.0) Red Cell Distribution Width 14.1% (12.3-15.4) Platelet Count 133bil/L (150-400) Neutrophils (%) (Auto) 80.7% (40-74) Lymphocytes (%) (Auto) 8.0% (14-46) Monocytes (%) (Auto) 9.6% (4-12) Eosinophils (%) (Auto) 0.7% (0-5) Basophils (%) (Auto) 0.4% (0-3) CMP Test 03/27/17 09:00 Sodium Level 137mEq/L Potassium Level 4.6mEq/L Chloride Level 97mEq/L Carbon Dioxide Level 23mmol/L Blood Urea Nitrogen 55mg/dL Creatinine 3.56mg/dL Estimat Glomerular Filtration Rate 19mL/min Glucose Level 103mg/dL Calcium Level 9.5mg/dL Magnesium Level 1.8mg/dL Total Bilirubin 0.6mg/dL Aspartate Amino Transf (AST/SGOT) 19U/L Alanine Aminotransferase (ALT/SGPT) 12U/L Alkaline Phosphatase 82U/L Total Protein 6.7g/dL Albumin 4.4g/dL Result Diagram: 03/27/17 0900 03/27/17 0900 12-lead ECG Ventricular paced rhythm. Assessment & Plan Problems: (1) Chronic systolic congestive heart failure, NYHA class 2 Plan: Euvolemic. EF 40%. Nonischemic cardiomyopathy. The patient is very stable at this point. He may proceed with this surgery. If cauterization is required then consider using magnet to disable tachycardia therapy. Once it is removed tachycardia therapy should be enabled. However I think it would be reasonable to have his device check to make sure that it is indeed enable on discharge. Please call our device clinic 1-2 days prior to discharge to arrange a device check at our office on the day that he is discharged. The patient's INR is trending downward hence we will go ahead and start him on intravenous heparin. His intravenous heparin should be stopped around 8 hours prior to surgery. After surgery his warfarin may be restarted and his intravenous heparin should be started between 12-24 hours after surgery. Once his INR is at 2.5 then his intravenous may be discontinued and the patient may go home. In regards with his other pre-admission medications, hold his Lasix on the day of procedure but continue with other meds on day of surgery. Status: Chronic ICD Code: I50.22 (2) H/O mechanical aortic valve replacement Status: Chronic ICD Code: Z95.2 (3) H/O mitral valve replacement with mechanical valve Status: Chronic ICD Code: Z95.2 (4) ESRD (end stage renal disease) Status: Chronic ICD Code: N18.6 (5) H/O ventricular fibrillation Status: Resolved ICD Code: Z86.79 (6) Paroxysmal a-fib Status: Chronic ICD Code: I48.0 (7) Warfarin anticoagulation Status: Chronic ICD Code: Z79.01 (8) AICD (automatic cardioverter/defibrillator) present Status: Chronic ICD Code: Z95.810 (9) Cardiac pacemaker in situ Comment: As mentioned above we will go ahead and interrogate his device to see if his working appropriately and as well as to evaluate the arrhythmia that caused his cardiac arrest. Last Edited By: Mitchell Jenkins MD on Jun 12, 2014 09:53 Status: Resolved ICD Code: Z95.0 (10) Complete heart block by electrocardiogram Status: Resolved ICD Code: I44.2 Resuscitation Status: CPR: Attempt Resuscitation Time spent 60 minutes Mitchell Jenkins MD Mar 27, 2017 12:09
--- NOTE | 2017-03-27 13:00 | NUR ---
Heparin Gtt-Cardiac Protocol Heparin gtt 1000u/hr started @ 1250. Bolus of 4800units admin. INR upon admit 1.36, Dr. Jenkins/ order to start Hep gtt if INR <2.2. Next PTT/1st adjustment @ 1800. Pt to be bridged for peritoneal dialysis cath tomorrow.
--- NOTE | 2017-03-27 14:22 | CONS ---
[address] [address] CONSULTATION REPORT PATIENT: NICHOL GARCÍA : 1960 MR#: [id number] ADMIT: 03/27/2017 JOB ID: [id number] DATE OF SERVICE: REQUESTING PHYSICIAN: Jose A Posadas MD. REASON FOR CONSULTATION: Management of end-stage renal disease. CHIEF COMPLAINT: Admission for peritoneal dialysis catheter placement. PRESENT ILLNESS: This is a very pleasant, 56-year-old, male with extensive cardiac history including paroxysmal atrial fibrillation, ventricular fibrillation, cardiac arrest, complete heart block, endocarditis, status post mechanical aortic and mitral valve replacement in August 2016, status post AICD, end-stage renal disease, on hemodialysis every Tuesday, Tuesday, and Tuesday, who came to the hospital for peritoneal dialysis catheter placement and IV heparin for the bridging treatment prior to the surgery. The patient is doing well overall and is very stable in terms of renal standpoint. His last dialysis was performed on Tuesday. Repeat labs today show hemoglobin of 12.2, potassium of 4.6, creatinine of 3.56, and INR of 1.36. The patient was evaluated by a lead process engineer. He will be started on heparin drip prior to the procedure and it will be on hold 8 hours prior to the procedure. PAST MEDICAL HISTORY: 1. End-stage renal disease, secondary to ischemic nephropathy, on hemodialysis every Tuesday, Tuesday, and Tuesday. He has a tunneled catheter for access for hemodialysis. 2. Extensive cardiac history including atrial fibrillation, ventricular fibrillation, status post AICD, endocarditis, status post mechanical aortic and mitral valve replacement. 3. Nonischemic Cardiomyopathy, EF 40%. 4. Ankylosing spondylitis. 5. Hypertension. PAST SURGICAL HISTORY: 1. Status post tunneled catheter placement. 2. Status post pacemaker placement. 3. Status post AICD. 4. Status post mechanical aortic and mitral valve replacement. ALLERGIES: No known drug allergies. SOCIAL HISTORY: Denied current use of alcohol, tobacco, or illicit drugs. He works in the [employer] in [place]. FAMILY HISTORY: Noncontributory. REVIEW OF SYSTEMS: Fourteen-point review of system was performed. PHYSICAL EXAMINATION: Vitals: Temperature 36.8, pulse 79, respiratory 16, blood pressure 114/66, O2 sat 97% on room air. General appearance: Awake, alert, oriented x3. In no acute distress. HEENT: No pallor. No jaundice. No JVD. No lymphadenopathy. No thyroid enlargement. Heart: Regular rhythm. Normal S1, S2. Systolic murmur noted. Positive valve click. Lungs clear to auscultation bilaterally. No wheezing. No rhonchi. No accessory muscle use. Abdomen: Soft, nontender, nondistended. No hepatosplenomegaly. Extremities: No edema, cyanosis or clubbing of fingers. LABORATORY: Sodium 137, potassium 4.6, chloride 97, bicarb 23, BUN 55, creatinine 3.56, hemoglobin 12.2. WBC 6.8, platelets 133. ASSESSMENT: 1. End-stage renal disease, on hemodialysis every Tuesday, Tuesday, and Tuesday via tunnelled catheter. Pending for permanent dialysis access, peritoneal catheter placement. 2. History of endocarditis, status post mechanical aortic and mitral valve replacement. 3. History of ventricular fibrillation, status post automatic implantable cardioverter-defibrillator. 4. Paroxysmal atrial fibrillation. 5. Chronic anticoagulation. 6. Status post pacemaker placement. 7. Nonischemic cardiomyopathy with ejection fraction 40%. PLAN: 1. Start heparin drip as per recommendation from the cardiology service. 2. We will arrange for hemodialysis tomorrow. 3. Likely patient will proceed with peritoneal catheter placement on March 29. 4. Continue metoprolol. Thank you for allowing me to participate in the care of your patient. We will monitor along with you. YULIYA
--- NOTE | 2017-03-27 14:51 | PCM.HPMED ---
Subjective Date of Service Mar 27, 2017 Primary Provider: Admitting Physician: Jose A Posadas MD Primary Care Physician: Kirill López DO Attending Physician: Jose A Posadas MD Admit Status: Direct Admit, Full Admit, [facility] Telemetry Chief Complaint: Fatigue, uremia History of Present Illness: This is a pleasant 56-year-old gentleman who has a history of aortic and mitral valve replacements with mechanical valves. He also has a history of probable end-stage renal disease and has been on dialysis for last period of time. He has a right subclavian dialysis catheter was removed soon as he has been using this for several months. The patient has veins not amenable to a fistula placement. For that reason he is going to have a PD catheter for peritoneal dialysis placed on Tuesday. He is on chronic warfarin for his mechanical valves and because of his kidney disease he is not a candidate for Lovenox for bridging to his procedure. The patient is here to be admitted for withdrawal of Coumadin and not fractionated heparin drip to bridge him through his procedure until Coumadin is reloaded. He denies any current symptoms including rhinorrhea, cough, sore throat, shortness of breath. No orthopnea, or pedal edema. No recent bleeding problems from Coumadin. No difficulty with bowel movements. No fevers or chills. Review of Systems: All else reviewed and otherwise unremarkable except as noted in history of present illness Allergies Coded Allergies: No Known Allergies (Verified Allergy, Unknown, 03/27/17) Home Medications Aspirin 81 mg daily, furosemide 80 mg Tuesday and Tuesday hydromorphone 2 mg when necessary up to 4 times a day metoprolol ER 25 mg twice a day Nephrocaps once daily pantoprazole 40 mg daily Renagel 800 mg daily and warfarin adjusted dose PMH Ankylosing spondylitis Ventricular fibrillation with cardiac arrest, ICD implantation Complete heart block, status post pacemaker implantation Postoperative paroxysmal atrial fibrillation Endocarditis with subsequent mitral and aortic valve replacements, mechanical. Chronic anticoagulation. Obstructive sleep apnea Surgical History Aortic and mitral valve replacement ICD implantation Dual pacemaker Implantation Family History Negative for ankylosing spondylitis in siblings or parents Social History Hx Alcohol Use: Yes (occasional) Hx Substance Use: No Smoking Status: Never Smoker Living Arrangement: with Family Exam Vital Signs Vital Sign - Last Date Time Temp Pulse Resp B/P Pulse Ox O2 Delivery O2 Flow Rate FiO2 03/27/17 08:57 36.8 79 16 114/66 97 Room Air Exam Oriented 3. No distress. Fluent speech. Normal affect. Normal skull. Normal nose and ears. Anicteric sclera, symmetric pupils Oropharynx is unremarkable, no facial droop. Neck is supple, normal thyroid. No adenopathy. Lungs are clear, normal effort rate. Heart is regular without murmur gallop or rub. S1 and S2 metallic click Abdomen soft, nondistended or tender. Extremities are free of pedal edema. Good radial and pedal pulses. Skin is free of rash, lesions. No petechiae or ecchymosis. Joints are grossly normal. Cranial nerves are grossly normal. Motor strength is normal in all extremities. Normal muscular tone. Lab and Diagnostics Result Diagram: 03/27/17 0903/27/17 09 Assessment & Plan End-stage renal disease, POA. The plan is to dialyze tomorrow via right subclavian dialysis catheter. Plans are to place a peritoneal dialysis catheter on Tuesday. Chronic anticoagulation, POA. Plan is to bridge with heparin drip and hold Coumadin and resume Coumadin correctly after procedure. Prior aortic and mitral valve replacement, mechanical. POA. Plan is bridging as above. Ankylosing spondylitis, POA. Acetaminophen as needed. Essential hypertension, POA. Resume metoprolol 25 mg Patient is full resuscitation Inpatient status, expect two nights length of stay Pain Evaluation: Adequate Pain Control Resuscitation Status: CPR: Attempt Resuscitation Time spent 40 minutes Jose A Posadas MD Mar 27, 2017 14:51
[2017-03-27 15:08] VITALS: BP 101/67; PULSE 75; RESP 16; O2SAT 97
[2017-03-27 19:37] VITALS: BP 106/68; PULSE 75; RESP 16; O2SAT 98
[2017-03-27 22:55] VITALS: BP 96/60; PULSE 75; RESP 16; O2SAT 99
[2017-03-28] VITALS (7 sets, daily range): BP systolic 103–115; BP diastolic 63–76; PULSE 54–78; RESP 14–20; O2SAT 98–100
[2017-03-28] MEDS: Sodium Chloride LOK Flush 10 mL Syringe IVFLUSH SCH ×4 (00:27→21:16)
[2017-03-28] MEDS: Heparin 5,000 Unit/mL Inj IVPUSH PRN ×2 (01:20→09:36)
--- NOTE | 2017-03-28 05:47 | NUR ---
Heparin/Rest Cardiac heparin infusing at 1075 units/hour. Last PTT 41.8. Next PTT due at 0715. Patient sleeping through the night. Continue to monitor.
--- NOTE | 2017-03-28 08:00 | NUR ---
Off unit Patient off unit to [facility] for dialysis. Report given to MARICRUZ Salgado Addendum: 03/28/17 at 1757 by JIMMY NOEL RN Returned to unit 1300. VSS. Tolerated dialysis well. Up in chair watching TV, call light within reach.
--- NOTE | 2017-03-28 09:22 | PCM.PNNEPH ---
Subjective Date of Service Mar 28, 2017 Subjective seen during HD, no complaint. on heparin gtt. Exam Vital Signs Vital Sign - Last Date Time Temp Pulse Resp B/P Pulse Ox O2 Delivery O2 Flow Rate FiO2 03/28/17 07:44 36.8 75 16 110/66 100 Room Air Intake and Output 03/27/17 03/27/17 03/28/17 Cumulative From/Thru 15:00 23:00 07:00 03/27/17 08:42 - 03/28/17 06:13 Intake Total 753 ml 851 ml 1604 ml Output Total 350 ml 700 ml 1050 ml Balance 403 ml 151 ml 554 ml Intake Oral 650 ml 600 ml 1250 ml IV Total 103 ml 251 ml 354 ml Output Urine Total 350 ml 700 ml 1050 ml Exam General appearance: Awake, alert, oriented x3. In no acute distress. HEENT: No pallor. No jaundice. No JVD. No lymphadenopathy. No thyroid enlargement. Heart: Regular rhythm. Normal S1, S2. Systolic murmur noted. Positive valve click. Lungs clear to auscultation bilaterally. No wheezing. No rhonchi. No accessory muscle use. Abdomen: Soft, nontender, nondistended. No hepatosplenomegaly. Extremities: No edema, cyanosis or clubbing of fingers. Skin: Right tunneled cath in place. Lab and Diagnostics Result Diagram: 03/28/17 0745 03/27/17 0900 Plan Impression 1. End-stage renal disease, on hemodialysis every Tuesday, Tuesday, and Tuesday via tunnelled catheter. 4 hr, 3L UF, 2K, 35HCO3, DFR 600, BFR 400. Revaclear, tunneled cath. 2. History of endocarditis, status post mechanical aortic and mitral valve replacement. 3. History of ventricular fibrillation, status post automatic implantable cardioverter-defibrillator. 4. Paroxysmal atrial fibrillation. 5. Chronic anticoagulation. 6. CHB status post pacemaker placement. 7. Nonischemic cardiomyopathy with ejection fraction 40%. PLAN: 1. Continue heparin gtt. Hold 8 hr prior to the procedure. 2. Next HD on Tuesday. 3. Pending for peritoneal catheter placement on March 29. Pedro Klein MD Mar 28, 2017 09:22
--- NOTE | 2017-03-28 10:17 | NUR ---
Social Work Note: Multidisciplinary Rounds Pt was discussed in AM rounds today, per MD pt will have PD cath placed tomorrow, Tuesday. Pt is ambulating in his room. No MD orders identified at this time. SW to follow up with pt regarding initial Assessment and discharge planning needs. SW to continue to follow. SAY White
--- NOTE | 2017-03-28 13:18 | NUR ---
Dialysis note: 4 hr tx Net UF 2000 Right catheter, dresg CDI Pt on Heparin drip, monitored by floor RN, Naomi Tx stable. Dwelled with Heparin 1000 and secured with caps Pt returned to floor stable Please see DTR for complete record of VS
[2017-03-28] MEDS: Pantoprazole 40 mg ER24 Tablet PO SCH (13:49)
--- NOTE | 2017-03-28 15:03 | PCM.PNMED ---
Subjective Date of Service Mar 28, 2017 Subjective Patient is doing well today. No difficulties overnight other than insomnia. He denies any chest pain, cough, shortness of breath. No nausea, emesis. He had dialysis this morning without problems. No overnight events noted. Exam Vital Signs Vital Sign - Last Date Time Temp Pulse Resp B/P Pulse Ox O2 Delivery O2 Flow Rate FiO2 03/28/17 08:24 54 03/28/17 07:44 36.8 16 110/66 100 Room Air Intake and Output 03/27/17 03/27/17 03/28/17 Cumulative From/Thru 15:00 23:00 07:00 03/27/17 08:42 - 03/28/17 06:13 Intake Total 753 ml 851 ml 1604 ml Output Total 350 ml 700 ml 1050 ml Balance 403 ml 151 ml 554 ml Intake Oral 650 ml 600 ml 1250 ml IV Total 103 ml 251 ml 354 ml Output Urine Total 350 ml 700 ml 1050 ml Exam Alert and oriented -3, no distress. Fluent speech Anicteric sclera. Lungs are clear with normal rate and effort Heart is regular without murmur gallop or rub Abdomen soft nontender, flat Extremities are free of edema. Skin is free of rash or lesions. Normal muscle tone and joints are free of deformity. IVs and Medications Medications Reviewed: Medications were reviewed in detail Lab and Diagnostics Result Diagram: 03/28/17 0745 03/27/17 0900 Assessment & Plan End-stage renal disease, POA. The patient was dialyzed today. Anticipate placement of a peritoneal dialysis catheter tomorrow. Will continue bridging heparin before and just after the procedure with resumption of Coumadin. Chronic anticoagulation, POA. Plan is as above. Prior aortic and mitral valve replacement, mechanical. POA. Plan is bridging as above. Ankylosing spondylitis, POA. Acetaminophen as needed. Essential hypertension, POA. Resume metoprolol 25 mg, no change to medical plan otherwise. Patient is full resuscitation Inpatient status, expect two nights length of stay Resuscitation Status: CPR: Attempt Resuscitation Jose A Posadas MD Mar 28, 2017 15:03
--- NOTE | 2017-03-28 17:42 | PROG NOTE ---
[address] [address] PROGRESS NOTE PATIENT: NICHOL GARCÍA : 1960 MR#: [id number] ADMIT: 03/27/2017 JOB ID: [id number] DATE: 03/28/2017 SUBJECTIVE: The patient is seen in followup. I did an outpatient consult on him and discussed his case with Dr. Temo Carl. He has poor peripheral veins and his best choice for nonintravenous catheter-based hemodialysis is to do peritoneal dialysis. But for all the issues that were listed in Dr. Knox's outpatient notes and Dr. Jenkins's notes, he cannot be on Lovenox. So, the decision had to be made that he be admitted and converted from warfarin to intravenous heparin. He has been seen by Dr. Beal, Dr. Jenkins and also Dr. Jose A Posadas. He was dialyzed earlier today. He is feeling fine. He denies any abdominal pain. PHYSICAL EXAMINATION: Alert, no distress. BMI is 26, temperature 36.8, brachial blood pressure 110/66, pulse 54, respiratory rate 16 on room air. HEENT: PERRLA, EOMI. No scleral icterus. Neck: Right internal jugular tunneled catheter. Lungs: Clear. Cardiac exam: I did not appreciate any murmurs. Right anterior chest: Pacemaker defibrillator. Abdomen is soft, nontender. No appreciable hernias. IMPRESSION: There are no contraindications to proceeding with laparoscopic placement of a peritoneal dialysis catheter. His intravenous heparin will be stopped at 5 a.m. He will be n.p.o. post midnight. Informed consent is obtained. He will receive preoperative antibiotics. The catheter can be used in about two weeks. The patient agrees to proceed. The patient seen for decision to operate. Time spent with patient and also in coordination of care 30 minutes.
[2017-03-29] VITALS (15 sets, daily range): BP systolic 92–127; BP diastolic 62–91; PULSE 70–77; RESP 12–18; O2SAT 98–100
[2017-03-29] MEDS ORDERED: Lactated Ringer's 1,000 ML IV SCH ×2 (05:00→08:02)
[2017-03-29] MEDS ORDERED: CeFAZolin 2 Gm/50 mL D5W IV Premix IV SCH (06:00)
--- NOTE | 2017-03-29 06:41 | NUR ---
Heparin Heparin gtt stopped at 0500.
[2017-03-29] MEDS ORDERED: Lactated Ringer's 500 ML IV PRN (08:02)
--- NOTE | 2017-03-29 08:02 | PCM.HPANE ---
Patient Data Surgeon Admitting Provider:Jose A Posadas MD Attending Provider:Jose A Posadas MD Primary Care Physician:Kirill López DO Other Provider:Nae Alba Anesthesia Reason for Visit End Stage Renal Failure Ht/WT & BMI Height (Feet): 5 Height (Inches): 9.00 Weight (Kilograms): 81.000 Body Mass Index 26.25 Allergies Coded Allergies: No Known Allergies (Verified Allergy, Unknown, 03/27/17) Past Anesthesia History Anesthesia History: Denies:: Abnormal Airway, Anesthesia Reactions, Difficult Intubation Diabetes History Hx Diabetes?: No MRSA MRSA: No Medications Hypertension Medication: Yes Home Meds Incl Beta Mayra: Yes Date Beta Mayra Taken: Mar 29, 2017 Time Beta Mayra Taken: 09:00 Reported Medications Cholecalciferol (Vitamin D3) (Vitamin D)1,000 Unit Capsule2,000 Unit PO DAILY # 1 BOTTLE Ref 0 03/27/17 [Metoprolol] No Conflict Check25 Po Daily Once daily on dialysis days Tuesday, Tuesday and Tuesday03/27/17 [metoprolol] No Conflict Check25 Mg PO BID HIGH BLOOD PRESSURE Twice daily on non dialysis days 03/27/17 Hydromorphone 4 Mg Tablet4 Mg PO BID PAIN Ref 0 03/27/17 Warfarin Sodium 7.5 Mg Tablet7.5 Mg PO DAILY 30 Days Ref 0 03/27/17 Folic Acid/Vitamin B Comp W-C (Triphrocaps Softgel)1 Mg Capsule1 Capsule PO DAILY #30 10/08/[address] 40 Mg Tablet.dr40 Mg PO DAILY 09/30/16 Furosemide 80 Mg Tab80 Mg PO ,,Sat,Sun 09/30/16 Aspirin 81 Mg Oqjtth49 Mg PO DAILY 09/30/16 Discontinued Reported Medications Sevelamer HCl (Renagel)800 Mg Tagvvd909 Mg PO DAILY 09/30/16 Ondansetron 4 Mg Tablet4 Mg PO DAILY 09/30/16 History History of ENT Problems?: No HEENT History: Denies:: Cataracts Dysphagia Glaucoma Sinus Problem Denture Type: None Teeth Condition: Within Normal Limits Hx of Heart Problems?: Yes Cardiovascular History: Positive for:: Cardiac Surgery (Aug 20 valve mitrial & aortic valves) Edema Heart Murmur Hypertension Irregular Heartbeat Pacemaker (pacemaker 1999, 2013 ICD & pacer ) Denies:: Chest Pain Congestive Heart Failure Thrombophlebitis Hx of Respiratory Problem?: Yes Respiratory History: Positive for:: Dyspnea Pneumonia (2014) Denies:: Asthma COPD Chest Surgery Emphysema Hemoptysis Tuberculosis Hx Neurologic Problems?: No Hx of GI Problems?: No Hx of Problems?: Yes Genitourinary History: Positive for:: HX of Hemodialysis Denies:: Kidney Stones Urinary Tract Infection HX of Peritoneal Dialysis: Yes (current stay is to place a peritoneal catheter) Male Hx: Denies:: Prostate Problems Scrotal Mass Testicular Surgery Hx Musculoskeletal Problems?: Yes Musculoskeletal History: Positive for:: Back Injury (anklyosis spondilitis) Musculoskeletal Trauma (ankle fx @ 19y/o) Denies:: Joint Replacement Hx of Psycho/Social Problems?: No Psycho Social History: Denies:: Anxiety Bipolar Disorder Hx Depression Suicide Attempt Hx Surgeries?: Yes Hx Any Other Health Problems?: Yes Other History: Positive for:: Hospitalization Denies:: Cancer Endocrine Disease Thyroid Disease History Blood Transfusions: Positive for:: Accept Blood Products? Blood Transfusions Denies:: Blood Transfuse Reaction Hx Diabetes: No Hx Alcohol Use: Yes (occasional)Hx Substance Use: No Smoking Status: Never Smoker Stop/Bang Treated for Sleep Apnea?: No Do You Have a CPAP Machine?: No S-Snoring: Do You Snore Loudly: No T-Tired: feel tired, fatigued: No O-Obsered: Observed not breath: No P-Blood Pressure: treated: Yes B- Body Mass Index > 35 kg/m2: No A- Age over 50: Yes N- Neck Large Circumference: No G- Gender Male: Yes ALEJANDRA Total Score: 2 ALEJANDRA Risk Assessment: High Risk, =/>3 Yes ALEJANDRA Category 4 OutPt Procedure: Yes Risk Assessment Category Category 1A: Patient has history of documented sleep apnea, and HAS NOT received any narcotic, sedative or anesthesia administration during this stay. Category 1B: Patient has history of documented sleep apnea, and HAS received any narcotic , sedative or anesthesia administration during this stay Category 2: Patient has SUSPECTED Obstructive Sleep Apnea, and HAS received any narcotic , sedative or anesthesia administration during this stay. Category 3: Patient has SUSPECTED Obstructive Sleep Apnea and HAS NOT received narcotic, sedative or anesthesia administration during this stay. Category 4: Outpatient in Procedural Areas with known sleep apnea or who screen positive for High Risk via the STOP/BANG questionnaire. Exam Exam Vital Signs Vital Signs Date Time Temp Pulse Resp B/P Pulse Ox O2 Delivery O2 Flow Rate FiO2 03/29/17 04:49 36.9 75 16 97/65 98 Room Air General Appearance: Alert, Oriented X3, Cooperative, No Acute Distress HEENT/AIRWAY: MP 2 Lungs: Clear to Auscultation, Normal Air Movement Heart: Exam Unremarkable, Regular Rate/Rhythm, No Murmurs/Rubs/Gallops Meds/Labs/Diagnostics Admission Meds Current Medications Aspirin (Ecotrin) 81 mg DAILY PO Last administered on 03/28/17 13:49; Start at 08:30 Pantoprazole (Protonix) 40 mg DAILY PO Last administered on 03/28/17 13:49; Start 03/28/17 at 08:30 Labs Test 03/27/17 09:00 03/28/17 07:45 03/28/17 14:05 White Blood Count 6.8th/mm3 (3.8-10.1) Red Blood Count 4.03mil/mm3 (4.40-5.80) Mean Corpuscular Volume 88.1fL (81-100) Mean Corpuscular Hemoglobin 30.3pg (27.0-35.0) Mean Corpuscular Hemoglobin Concent 34.4% (32.0-37.0) Red Cell Distribution Width 14.1% (12.3-15.4) Platelet Count 133bil/L (150-400) Neutrophils (%) (Auto) 80.7% (40-74) Lymphocytes (%) (Auto) 8.0% (14-46) Monocytes (%) (Auto) 9.6% (4-12) Eosinophils (%) (Auto) 0.7% (0-5) Basophils (%) (Auto) 0.4% (0-3) Prothrombin Time 14.6sec (8.1-12.5) Prothromb Time International Ratio 1.36ratio Sodium Level 137mEq/L (134-144) Potassium Level 4.6mEq/L (3.5-5.2) Chloride Level 97mEq/L (97-108) Carbon Dioxide Level 23mmol/L (18-29) Blood Urea Nitrogen 55mg/dL (6-24) Creatinine 3.56mg/dL (0.76-1.27) Estimat Glomerular Filtration Rate 19mL/min (>59) Glucose Level 103mg/dL (60-99) Calcium Level 9.5mg/dL (8.5-10.1) Magnesium Level 1.8mg/dL (1.6-2.6) Total Bilirubin 0.6mg/dL (0.0-1.2) Aspartate Amino Transf (AST/SGOT) 19U/L (0-50) Alanine Aminotransferase (ALT/SGPT) 12U/L (0-44) Alkaline Phosphatase 82U/L (25-150) Total Protein 6.7g/dL (6.4-8.4) Albumin 4.4g/dL (3.4-5.0) Hemoglobin 12.5g/dL (13.8-17.2) Hematocrit 37.0% (41.0-50.0) Activated Partial Thromboplast Time 46.7sec (22.8-33.0) Plan Impression Patient chart reviewed, patient interviewed and anesthestic plan with risks, benefits, and alternatives discussed, and informed consent obtained. ASA Physical Status: ASA2 Mod Systemic Disease Anesthetic Plan: MAC Bene/Risks/Altern/Consents: Yes HP Complete Prior to Induction: Yes Haja Vizcaino MD Mar 29, 2017 08:02
[2017-03-29] MEDS ORDERED: fentaNYL-PF 50 mCg/mL 2 mL Inj IVPUSH PRN (08:05)
[2017-03-29] MEDS ORDERED: HYDROmorphone 1 mg/mL Inj IVPUSH PRN (08:05)
[2017-03-29] MEDS ORDERED: Dexamethasone 4 mg/mL Inj IVPUSH PRN (08:05)
[2017-03-29] MEDS ORDERED: MetoCLOpramide 5 mg/mL 2 mL Inj IVPUSH PRN (08:05)
[2017-03-29] MEDS ORDERED: EPHEDrine Sulfate 50 mg/mL Inj IVPUSH PRN (08:05)
[2017-03-29] MEDS ORDERED: Ondansetron 2 mg/mL 2 mL Inj IVPUSH PRN (08:05)
[2017-03-29] MEDS ORDERED: Phenylephrine 10,000 mCg/mL Inj IVPUSH PRN (08:05)
[2017-03-29] MEDS: Pantoprazole 40 mg ER24 Tablet PO SCH (08:21)
[2017-03-29] MEDS: Sodium Chloride LOK Flush 10 mL Syringe IVFLUSH SCH ×3 (08:22→22:01)
--- NOTE | 2017-03-29 09:16 | PCM.PNMED ---
Subjective Date of Service Mar 29, 2017 Subjective Patient is doing well overnight. No problems. No difficulty with chest pain cough or shortness of breath abdominal pain or nausea. No overnight events. No bleeding problems. Exam Vital Signs Vital Sign - Last Date Time Temp Pulse Resp B/P Pulse Ox O2 Delivery O2 Flow Rate FiO2 03/29/17 08:18 37.0 77 16 115/78 99 Room Air Intake and Output 03/28/17 03/28/17 03/29/17 Cumulative From/Thru 15:00 23:00 07:00 03/27/17 08:42 - 03/29/17 07:00 Intake Total 757 ml 340 ml 2701 ml Output Total 2000 ml 575 ml 225 ml 3850 ml Balance -2000 ml 182 ml 115 ml -1149 ml Intake Oral 540 ml 100 ml 1890 ml IV Total 217 ml 240 ml 811 ml Output Urine Total 575 ml 225 ml 1850 ml Ultrafiltrate 2000 ml 2000 ml Exam Alert and oriented -3, no distress. Fluent speech Anicteric sclera. Lungs are clear with normal rate and effort Heart is regular without murmur gallop or rub Abdomen soft nontender, flat Extremities are free of edema. Skin is free of rash or lesions. IVs and Medications Medications Reviewed: Medications were reviewed in detail Lab and Diagnostics Result Diagram: 03/29/17 0825 03/27/17 0900 Assessment & Plan End-stage renal disease, POA. The patient was dialyzed yesterday. Anticipate placement of a peritoneal dialysis catheter today. Will continue bridging heparin before and just after the procedure with resumption of Coumadin. Chronic anticoagulation, POA. Plan is as above. Prior aortic and mitral valve replacement, mechanical. POA. Plan is bridging as above. Ankylosing spondylitis, POA. Acetaminophen as needed. Essential hypertension, POA. Resume metoprolol 25 mg, no change to medical plan otherwise. Patient is full resuscitation Inpatient status, expect two nights length of stay Resuscitation Status: CPR: Attempt Resuscitation Jose A Posadas MD Mar 29, 2017 09:16
[2017-03-29] MEDS ORDERED: Bupivacaine-MPF 0.5% 30 mL Inj INFILTRATE ONE (09:54)
[2017-03-29] MEDS ORDERED: HepLOK Flush 100 unit/mL 5 mL Inj IVFLUSH ONE (09:54)
[2017-03-29] MEDS ORDERED: Lactated Ringer's 1,000 ML IV ONE (09:55)
[2017-03-29] MEDS ORDERED: fentaNYL-PF 50 mCg/mL 2 mL Inj ONE (10:26)
[2017-03-29] MEDS ORDERED: Propofol 10,000 mCg/mL 20 mL Inj ONE (10:26)
[2017-03-29] MEDS ORDERED: Ondansetron 2 mg/mL 2 mL Inj ONE (10:26)
[2017-03-29] MEDS ORDERED: Ketamine 10 mg/mL 20 mL Inj ONE (10:26)
[2017-03-29] MEDS ORDERED: Neostigmine 1 mg/mL 10 mL Inj ONE (10:26)
[2017-03-29] MEDS ORDERED: Rocuronium 10 mg/mL 5 mL Inj ONE (10:26)
[2017-03-29] MEDS ORDERED: Glycopyrrolate 0.2 MG/ML 1mL Inj ONE (10:26)
--- NOTE | 2017-03-29 11:15 | OP ---
[address] [address] OPERATIVE REPORT PATIENT: NICHOL GARCÍA : 1960 MR#: [id number] ADMIT: 03/27/2017 JOB ID: [id number] DATE OF SURGERY: 03/29/2017 PREOPERATIVE DIAGNOSIS(ES): 1. End-stage renal failure. 2. Anticoagulation status. 3. Aortic and mitral valve replacement. 4. Pacemaker defibrillator. POSTOPERATIVE DIAGNOSIS(ES): 1. End-stage renal failure. 2. Anticoagulation status. 3. Aortic and mitral valve replacement. 4. Pacemaker defibrillator. PROCEDURES: 1. Diagnostic laparoscopy. 2. Laparoscopic placement peritoneal dialysis catheter. SURGEON: Mike Posadas M.D. BUSINESS ECONOMIST: Peng Valdes, both PACs. INDICATIONS: A 56-year-old man who has had both aortic and mitral valve replacements. He required ECMO. He has a history of paroxysmal atrial fibrillation, has a pacemaker defibrillator and is on warfarin. He developed acute tubular necrosis and has been started on dialysis. Because he has poor venous access and it was felt that he was a better candidate for peritoneal dialysis then to continue hemodialysis through a central venous catheter because of his valves and after discussing options, it was elected to proceed with a laparoscopy followed by laparoscopic placement of a peritoneal dialysis catheter. He required admission and stopping his warfarin and covering him with intravenous heparin prior to this operation. FINDINGS: The catheter was positioned in the pelvis. There is no identifiable abdominal wall bleeding. There is no resistance to inflow or outflow of the peritoneal dialysis catheter. DESCRIPTION OF PROCEDURE: At the beginning and end of the operation, the SCOAP checklist was completed. A general endotracheal anesthetic was induced. Using ChloraPrep, he was prepped and draped in the usual fashion. His heparin had been stopped at 0500 hours this morning. He received local anesthesia with 0.25% bupivacaine with epinephrine. A small left subcostal incision was made. A Veress needle was introduced atraumatically into the abdominal cavity and his abdomen was insufflated. An optical port was then used to gain access to the abdominal wall followed by placement of an additional 5 mm port in the left lower quadrant. The location of the internal cuff and the external exit site for the catheter were marked and a right-sided Curl cath was selected. A left upper quadrant incision was made. The anterior rectus fascia was exposed and a small incision made in it. The 8 mm port was then passed obliquely through the rectus muscle entering the abdominal cavity at the predetermined site of the internal cuff. After positioning the catheter in the pelvis and the cuff just external to the peritoneum, it was then taken to its external exit site in the right upper quadrant. There was no resistance to inflow and outflow of saline. It was then flushed with heparinized saline and clamped. The right upper quadrant transverse incision and all was closed with running 4-0 Vicryl. The abdomen was reinflated and there was only a trace amount of residual fluid I could identify and this was aspirated. The abdomen was then deflated. Trocars were removed without evidence of bleeding. The trocar sites were closed with deep dermal 4-0 Vicryl. Steri-Strips and sterile dressings were applied. Estimated blood loss 5 cc. No apparent complications. The final sponge, needle and instrument counts were announced as correct and he was returned to recovery room in stable condition. Critical assistance provided by Goldie Perez PA-C and Peng Dao PA-C.
--- NOTE | 2017-03-29 18:23 | NUR ---
Left unit/Pain/Heparin gtt Pt left PCC room 2000 for OR at ~0850 this am, report called to Stefani Rocha RN and returned to [facility] room 2000 at ~1120 from PACU after receiving report from Mary ALCANTARA. Pt A&Ox3, reported pain as tolerable, and VSS on RA both prior to leaving and after returning from procedure. Pt's abd dressing c/d/i. Pt started reporting pain 8/10 in abd incision later in the afternoon and Pt given IV morphine push which reduced pain to a tolerable level, contacted animal skinner who suggested turning side to side or ambulating, this was relayed to Pt, Pt sleeping comfortably at shift change. Pt has mechanical valves and using heparin gtt to bridge from and back to warfarin, Pt's heparin gtt off post procedure until 1999 per , order placed for heparin gtt at shift change, oncoming MILLA RN made aware.
[2017-03-29 19:31] LABS: INR 0.97 ratio
--- NOTE | 2017-03-29 20:24 | PCM.CONPHA ---
Subjective Date of Service: Mar 29, 2017 Fatigue, uremia Reason for Pharmacy Consult: Anticoagulation Management Objective Vital Signs Date Time Temp Pulse Resp B/P Pulse Ox O2 Delivery O2 Flow Rate FiO2 03/29/17 19:26 36.7 75 18 104/64 100 Room Air 03/29/17 16:05 75 18 92/62 98 Room Air 03/29/17 11:25 36.7 75 18 115/73 100 Room Air 03/29/17 11:05 75 14 108/67 100 Room Air 03/29/17 11:00 75 14 127/91 100 Room Air 03/29/17 10:55 75 15 103/75 100 Room Air 03/29/17 10:50 75 14 114/74 100 Room Air 03/29/17 10:45 75 14 106/71 100 Room Air 03/29/17 10:40 75 12 111/72 100 Room Air 03/29/17 10:35 36.0 75 12 116/70 100 Simple Mask 8 03/29/17 10:30 75 12 111/68 100 Simple Mask 8 03/29/17 10:26 36.1 75 12 99/63 100 Simple Mask 8 03/29/17 08:18 37.0 77 16 115/78 99 Room Air 03/29/17 04:49 36.9 75 16 97/65 98 Room Air 03/28/17 23:12 37.0 75 16 105/72 98 Room Air 03/28/17 21:09 36.8 78 20 115/76 98 Room Air Intake and Output 03/27/17 03/28/17 03/29/17 00:00 00:00 00:00 Intake Total 753 ml 1608 ml Output Total 350 ml 3275 ml Balance 403 ml -1667 ml Weight (Kilograms): 81.000 Height (Feet): 5 Height (Inches): 9.00 Test 03/27/17 09:00 03/28/17 14:05 03/29/17 08:25 03/29/17 19:05 White Blood Count 6.8th/mm3 (3.8-10.1) Red Blood Count 4.03mil/mm3 (4.40-5.80) Mean Corpuscular Volume 88.1fL (81-100) Mean Corpuscular Hemoglobin 30.3pg (27.0-35.0) Mean Corpuscular Hemoglobin Concent 34.4% (32.0-37.0) Red Cell Distribution Width 14.1% (12.3-15.4) Platelet Count 133bil/L (150-400) Neutrophils (%) (Auto) 80.7% (40-74) Lymphocytes (%) (Auto) 8.0% (14-46) Monocytes (%) (Auto) 9.6% (4-12) Eosinophils (%) (Auto) 0.7% (0-5) Basophils (%) (Auto) 0.4% (0-3) Sodium Level 137mEq/L (134-144) Potassium Level 4.6mEq/L (3.5-5.2) Chloride Level 97mEq/L (97-108) Carbon Dioxide Level 23mmol/L (18-29) Blood Urea Nitrogen 55mg/dL (6-24) Creatinine 3.56mg/dL (0.76-1.27) Estimat Glomerular Filtration Rate 19mL/min (>59) Glucose Level 103mg/dL (60-99) Calcium Level 9.5mg/dL (8.5-10.1) Magnesium Level 1.8mg/dL (1.6-2.6) Total Bilirubin 0.6mg/dL (0.0-1.2) Aspartate Amino Transf (AST/SGOT) 19U/L (0-50) Alanine Aminotransferase (ALT/SGPT) 12U/L (0-44) Alkaline Phosphatase 82U/L (25-150) Total Protein 6.7g/dL (6.4-8.4) Albumin 4.4g/dL (3.4-5.0) Activated Partial Thromboplast Time 46.7sec (22.8-33.0) Hemoglobin 12.8g/dL (13.8-17.2) Hematocrit 38.0% (41.0-50.0) Prothrombin Time 10.4sec (8.1-12.5) Prothromb Time International Ratio 0.97ratio Assessment/Plan Assessment/Plan Warfarin management per pharmacy Indication: mechanical valves (mitral, aortic), atrial fibrillation INR goal: 2.5-3.5 Home warfarin dose: 7.5 mg daily (MARICRUZ Jean, confirmed with patient) Pertinent info: - Patient stopped taking warfarin 2 days prior to admission. INR was 1.36 on admit (03/27/17). - Admitted for placement of peritoneal dialysis cath placement. Warfarin has been held and patient was bridged with heparin drip. Heparin drip restarted after cath placement. - INR 0.97 today. INR is subtherapeutic today so will order bolus dose. Give warfarin 10 mg PO one time this evening. Serial INRs have been ordered x5. Pharmacy to continue to follow and dose warfarin daily. Thank you, Naima Bryant Pharmacist Naima Bryant Mar 29, 2017 20:24
[2017-03-30] MEDS: Heparin 5,000 Unit/mL Inj IVPUSH PRN ×3 (01:39→15:52)
[2017-03-30 02:52] VITALS: BP 92/58; PULSE 75; RESP 18; O2SAT 98
--- NOTE | 2017-03-30 03:26 | NUR ---
Pain Pt had several episodes of 7-8/10 pain. Receiving IV morphine and PO regular scheduled Oxycodone.
[2017-03-30] MEDS: Sodium Chloride LOK Flush 10 mL Syringe IVFLUSH SCH ×3 (07:52→23:58)
[2017-03-30] MEDS: Pantoprazole 40 mg ER24 Tablet PO SCH (07:53)
[2017-03-30 07:54] VITALS: BP 111/77; PULSE 75; RESP 18; O2SAT 98
[2017-03-30 08:45] VITALS: BP 110/73; PULSE 75
--- NOTE | 2017-03-30 09:00 | NUR ---
pt arrived to [facility] [place] at 0815 via bed report received from CB RN (PCC) pt alert/oriented, c/o chronic back pain 02/12 for which he was given pain medication for prior to arrival cooperative and pleasant; talking to on cellphone and ordering breakfast RA, nusrat tele, heparin gtt infusing at 1100units/hr (22ml/hr) call light in reach and crown blocker at bedside; will cont to monitor
--- NOTE | 2017-03-30 11:06 | PROG NOTE ---
[address] [address] PROGRESS NOTE PATIENT: NICHOL GARCÍA : 1960 MR#: [id number] ADMIT: 03/27/2017 JOB ID: [id number] DATE: 03/30/2017 SUBJECTIVE: The patient is seen in followup. He feels well. He has some discomfort at the incisions in right abdominal wall, as expected. He only put a small amount of drainage onto his dressing. PHYSICAL EXAMINATION: His abdomen is flat. Dressing essentially dry. IMPRESSION: Doing well. PLAN: He can be discharged to home whenever. His anticoagulation status is therapeutic and acceptable on warfarin. He would need to see the peritoneal dialysis nurse within one week. It could be used in two weeks from now. Once he is comfortable doing PD, then Dr. Peralta can arrange for his central venous catheter to be removed. Decisions about holding his anticoagulation for that will be up to Dr. Peralta.
--- NOTE | 2017-03-30 12:13 | PCM.PNNEPH ---
Subjective Date of Service Mar 30, 2017 Subjective s/p PD cath placement without complications. seen during HD. Exam Vital Signs Vital Sign - Last Date Time Temp Pulse Resp B/P Pulse Ox O2 Delivery O2 Flow Rate FiO2 03/30/17 07:54 37.0 75 18 111/77 98 Room Air 03/29/17 10:35 8 Intake and Output 03/29/17 03/29/17 03/30/17 Cumulative From/Thru 15:00 23:00 07:00 03/27/17 08:42 - 03/30/17 05:51 Intake Total 750 ml 1040 ml 300 ml 4791 ml Output Total 500 ml 500 ml 4850 ml Balance 750 ml 540 ml -200 ml -59 ml Intake Oral 1040 ml 300 ml 3230 ml IV Total 750 ml 1561 ml Output Urine Total 500 ml 500 ml 2850 ml Ultrafiltrate 2000 ml # Bowel Movements 0 0 Exam General appearance: Awake, alert, oriented x3. In no acute distress. HEENT: No pallor. No jaundice. No JVD. No lymphadenopathy. No thyroid enlargement. Heart: Regular rhythm. Normal S1, S2. Systolic murmur noted. Positive valve click. Lungs clear to auscultation bilaterally. No wheezing. No rhonchi. No accessory muscle use. Abdomen: Soft, nontender, nondistended. No hepatosplenomegaly. Tender over surgical incision Extremities : No edema, cyanosis or clubbing of fingers. Skin: Right tunneled cath in place. Lab and Diagnostics Result Diagram: 03/30/17 0710 03/27/17 0900 Plan Impression 1. End-stage renal disease, on hemodialysis every Tuesday, Tuesday, and Tuesday via tunnelled catheter. 4 hr, 3L UF, 2K, 35HCO3, DFR 600, BFR 400. Revaclear, tunneled cath. s/p PD cath placement. 2. History of endocarditis, status post mechanical aortic and mitral valve replacement. 3. History of ventricular fibrillation, status post automatic implantable cardioverter-defibrillator. 4. Paroxysmal atrial fibrillation. 5. Chronic anticoagulation. 6. CHB status post pacemaker placement. 7. Nonischemic cardiomyopathy with ejection fraction 40%. PLAN: 1. Continue heparin gtt. Continue coumadin 7.5 mg daily. 2. Next HD on Tuesday. 3. Daily INR, d/c once INR therapeutic ~ 2-3. Ananthapanyasut,Wanwarat MD Mar 30, 2017 12:13
--- NOTE | 2017-03-30 13:23 | PCM.PNMED ---
Subjective Date of Service Mar 30, 2017 Subjective 56-year-old man with ESRD on hemodialysis, history of mechanical M.D. and aVR admitted for anticoagulant bridging at time of peritoneal dialysis catheter placement. Catheter placed on 03/29/17. Moderate postoperative pain is now improving somewhat. No bowel activity for several days. Now on increased opioid analgesics. Exam Vital Signs Vital Sign - Last Date Time Temp Pulse Resp B/P Pulse Ox O2 Delivery O2 Flow Rate FiO2 03/30/17 07:54 37.0 75 18 111/77 98 Room Air 03/29/17 10:35 8 Intake and Output 03/29/17 03/29/17 03/30/17 Cumulative From/Thru 15:00 23:00 07:00 03/27/17 08:42 - 03/30/17 05:51 Intake Total 750 ml 1040 ml 300 ml 4791 ml Output Total 500 ml 500 ml 4850 ml Balance 750 ml 540 ml -200 ml -59 ml Intake Oral 1040 ml 300 ml 3230 ml IV Total 750 ml 1561 ml Output Urine Total 500 ml 500 ml 2850 ml Ultrafiltrate 2000 ml # Bowel Movements 0 0 Exam General: Healthy-appearing, no acute distress HEENT: sclerae anicteric, oral mucosa moist Neck: no JVD Chest: clear to auscultation Cardiac: S1S2, mechanical valve sounds, II/ diastolic murmur Abdomen: BS normal, mild tenderness around HD cath surgical incision site Extremities: No pitting edema Neuro: A&O, cranial nerves symmetric, motor strength 5/5, coordination normal IVs and Medications Medications Reviewed: Medications were reviewed in detail Lab and Diagnostics INR: 03/29 0.97, 03/30 1.00 APTT therapeutic. Result Diagram: 03/30/17 0710 03/27/17 0900 Assessment & Plan Active medical problems: # Anticoagulant bridging - resumed warfarin on 03/29. Currently on heparin drip. - Plan to continue heparin bridging for warfarin treatment and discharge with INR 2.5-3.5. - Daily INR # End-stage renal disease, POA. - Continue Hemodialysis, schedule per the nephrology service. - Plan initiation of peritoneal dialysis in approximately 2 weeks # Pain management, not POA. - Continue narcotic analgesics as needed and taper. Plan by mouth regimen prior to discharge Resolving, stable problems: Chronic systolic CHF. Currently asymptomatic. Prior aortic and mitral valve replacement, mechanical. POA. Plan is bridging as above. Ankylosing spondylitis, POA. Acetaminophen as needed. Essential hypertension, POA. Resume metoprolol 25 mg, no change to medical plan otherwise. CODE STATUS: Patient is full resuscitation Discharge planning: Inpatient status, expect 3 days Resuscitation Status: CPR: Attempt Resuscitation Time spent 30 minutes Aldo Carrera MD Mar 30, 2017 13:23
--- NOTE | 2017-03-30 13:48 | NUR ---
pt returned to [facility] post DIALYSIS at 1320 training specialist reported back to primary nurse see training specialist note, intervention, and/or graphic flow for treatment details
--- NOTE | 2017-03-30 13:50 | NUR ---
Dialysis note: 4 hr tx Net UF 2000 QB 400 right Cath pt stable throughout tx Report given to primary RN Damian Pt returned to floor stable Please see DTR for complete record of VS
--- NOTE | 2017-03-30 15:18 | NUR ---
Social Work Note: Initial Assessment/ Multidisciplinary Rounds Data& Assessment: EMR reviewed. Pt was discussed in AM rounds today, per MD pt is getting closer to being medically ready to discharge. Pt recovering from PD catheter placement yesterday. MD awaiting for pt INR levels to be therapeutic. SW met with pt at bedside to discuss discharge planning and assess for any unmet needs, SW role explained and Discharge Planning Packet provided. Malika Wilson is a 56 year old male admitted on 03/27/2017 for end stage renal failure. Pt was previously a HD patient at [facility]. Pt has [employer] and Medicare insurance coverage. Pt goes to the residency clinic for primary care. Pt lives in [place] with his significant other and is independent at baseline with all ADL's. Pt does not require any DME and does not have SNF hx. Pt has had Home Health 8 months ago after a heart attack, but pt does not remember which agency. Pt does have DPOA/AD paperwork completed, SW requested a copy when possible. Pt is not a and does not have LTC insurance. Pt denies any needs at this time. No MD orders identified at this time. SW to continue to follow if any needs arise. Plan: Anticipated discharge home via POV when medically ready. Pt denies any needs at this time. No MD orders identified at this time. SW to continue to follow if any needs arise. SAY White Addendum: 03/30/17 at 1528 by IRWIN AMAYA Amended: Links added.
--- NOTE | 2017-03-30 15:39 | NUR ---
ELIJAH Signed SAY White
[2017-03-30 16:20] VITALS: BP 111/77; PULSE 76; RESP 16; O2SAT 98
--- NOTE | 2017-03-30 18:57 | NUR ---
Pain/Blood Pt reported pain as tolerable prior to leaving for dialysis in [facility] room 244 today. Upon returning from dialysis, Pt reported pain in incision had increased again and was not tolerable when moving around, Pt given PRN morphine which reduced pain to tolerable at rest. Pt reported pain was still not tolerable with movement ~2 hours later when rounding on Pt. At this time, Pt's site assessed and sanguineous drainage noted to be saturating ~1/3 of dressing, surgeon notified who verbalized that drainage from this type of surgery was common and instructed RN to redress site. Pt's site redressed with 4x4 gauze and bio-occlusive dressing, no oozing was noted at incision during the dressing change, oncoming NOC RN made aware.
[2017-03-30] MEDS: Heparin 25K Unit/500mL 0.45 NS 25,000 UNIT in IV Premix 1 EACH IV SCH (19:46)
[2017-03-30 20:50] VITALS: BP 129/82; PULSE 80; RESP 16; O2SAT 98
[2017-03-31 02:52] LABS: INR 1.03 ratio
[2017-03-31 02:53] VITALS: BP 105/71; PULSE 73; RESP 16; O2SAT 98
--- NOTE | 2017-03-31 06:15 | NUR ---
Pain c/o pain x2 this shift. Prn morphine and routine Dilaudid administered and effective without any further complaints this shift.
--- NOTE | 2017-03-31 06:58 | PCM.ANEP1 ---
Post Anesthesia PACU Phase 1 Assessment Vital Signs Vital Signs Date Time Temp Pulse Resp B/P Pulse Ox O2 Delivery O2 Flow Rate FiO2 03/31/17 02:53 37.2 73 16 105/71 98 Room Air Anesthetic Administered: GA Level of Alertness: Awake, talking BULLOCK's with Equal Strength: Yes Pain: Yes Pain Scale Score: 7 Nausea or Vomiting: No CV Function & Hydration Stable: Yes Airway Device: Oralpharangeal Airway Oxygen Delivery: Simple Mask Lungs: Clear to Auscultation, Normal Air Movement Dermatome Level: Full Sensation PACU Phase 2 Assessment Complications: No Follow up Care: No Patient Instructions Provided: N/A Haja Vizcaino MD Mar 31, 2017 06:58
[2017-03-31 08:13] VITALS: BP 104/71; PULSE 75; RESP 12; O2SAT 100
[2017-03-31] MEDS: Sodium Chloride LOK Flush 10 mL Syringe IVFLUSH SCH ×2 (08:15→16:30)
[2017-03-31] MEDS: Pantoprazole 40 mg ER24 Tablet PO SCH (08:16)
[2017-03-31] MEDS: Polyethylene Glycol (PEG) 17 Gm Powder PO PRN (10:57)
[2017-03-31] MEDS: Heparin 5,000 Unit/mL Inj IVPUSH PRN ×3 (11:38→21:55)
--- NOTE | 2017-03-31 13:09 | PROG NOTE ---
[address] [address] PROGRESS NOTE PATIENT: NICHOL GARCÍA : 1960 MR#: [id number] ADMIT: 03/27/2017 JOB ID: [id number] DATE: 03/31/2017 SUBJECTIVE: The patient is seen in followup. He had some serosanguineous drainage around the catheter last night. He had his dressing changed twice. Subsequent to that, there has been no drainage. He feels better with decreased abdominal wall pain. PHYSICAL EXAMINATION: Temperature is 36.9, brachial blood pressure 104/71, pulse 75, respiratory rate 12, O2 sat room air 100%. His dressing is essentially dry. There is no evidence of an abdominal wall hematoma. LABORATORY RESULTS: Hematocrits are stable. They have been drawn. He had a hematocrit of 36 yesterday morning and is 37.5 today. His INR this morning is 1.03. He is on therapeutic intravenous heparin. IMPRESSION: The drainage that came around his catheter is very common. It is due to the fluid that was instilled during his procedure. All patients are warned that it is going to happen, and since these procedures are almost always done on an outpatient, they experience this at home and simply change their dressing. I do not think he is actively bleeding because of his heparin. IMPRESSION: Doing well. RECOMMENDATIONS: Continue with your plans and current anticoagulation.
--- NOTE | 2017-03-31 16:38 | PCM.PNMED ---
Subjective Date of Service Mar 31, 2017 Subjective 56-year-old man with ESRD on hemodialysis, history of mechanical M.D. and aVR admitted for anticoagulant bridging at time of peritoneal dialysis catheter placement. Peritoneal dialysis Catheter placed on 03/29/17. Mild postoperative pain is now improving. No bowel activity for several days, some flatulence today. Now on opioid analgesics. Frustration with the lack of progress on INR. Exam Vital Signs Vital Sign - Last Date Time Temp Pulse Resp B/P Pulse Ox O2 Delivery O2 Flow Rate FiO2 03/31/17 08:13 36.9 75 12 104/71 100 Room Air 03/29/17 10:35 8 Intake and Output 03/30/17 03/30/17 03/31/17 Cumulative From/Thru 15:00 23:00 07:00 03/27/17 08:42 - 03/31/17 04:30 Intake Total 1255 ml 274 ml 6320 ml Output Total 2500 ml 750 ml 8100 ml Balance -2500 ml 505 ml 274 ml -1780 ml Intake Oral 800 ml 4030 ml IV Total 455 ml 274 ml 2290 ml Output Urine Total 750 ml 3600 ml Ultrafiltrate 2500 ml 4500 ml # Bowel Movements 0 Exam General: Healthy-appearing, no acute distress HEENT: sclerae anicteric, oral mucosa moist Neck: no JVD Chest: clear to auscultation Cardiac: S1S2, mechanical valve sounds, II/ diastolic murmur Abdomen: BS normal, mild tenderness around HD cath surgical incision site, no erythema Extremities: No pitting edema Neuro: A&O, cranial nerves symmetric, motor strength 5/5, coordination normal IVs and Medications Medications Reviewed: Medications were reviewed in detail Lab and Diagnostics INR 1.03 Result Diagram: 03/31/17 0905 03/27/17 09 Assessment & Plan Active medical problems: # Anticoagulant bridging - resumed warfarin on 03/29. Currently on heparin drip. - Increase warfarin to 10 mg daily until beginning to see INR rise - Plan to continue heparin bridging for warfarin treatment and discharge with INR 2.5-3.5. - Daily INR # End-stage renal disease, POA. - Continue Hemodialysis, schedule per the nephrology service. - Plan initiation of peritoneal dialysis in approximately 2 weeks # Pain management, not POA. - Continue narcotic analgesics as needed and taper. Plan by mouth regimen prior to discharge # Constipation, not POA. - Aggressive bowel regimen - Increase physical activity Resolving, stable problems: Chronic systolic CHF. Currently asymptomatic. Prior aortic and mitral valve replacement, mechanical. POA. Plan is bridging as above. Ankylosing spondylitis, POA. Acetaminophen as needed. Essential hypertension, POA. Resume metoprolol 25 mg, no change to medical plan otherwise. CODE STATUS: Patient is full resuscitation Discharge planning: Inpatient status, expect 3 more days Resuscitation Status: CPR: Attempt Resuscitation Time spent 25 minutes Aldo Carrera MD Mar 31, 2017 16:38
[2017-03-31 16:49] VITALS: BP 103/56; PULSE 53; RESP 16; O2SAT 98
--- NOTE | 2017-03-31 17:02 | PCM.PNNEPH ---
Subjective Date of Service Mar 31, 2017 Subjective No acute issue overnight, no CP/SOB. Pain is controlled. INR 1.03. Last HD yesterday without complications. Exam Vital Signs Vital Sign - Last Date Time Temp Pulse Resp B/P Pulse Ox O2 Delivery O2 Flow Rate FiO2 03/31/17 16:49 37.2 53 16 103/56 98 Room Air 03/29/17 10:35 8 Intake and Output 03/30/17 03/30/17 03/31/17 Cumulative From/Thru 15:00 23:00 07:00 03/27/17 08:42 - 03/31/17 04:30 Intake Total 1255 ml 274 ml 6320 ml Output Total 2500 ml 750 ml 8100 ml Balance -2500 ml 505 ml 274 ml -1780 ml Intake Oral 800 ml 4030 ml IV Total 455 ml 274 ml 2290 ml Output Urine Total 750 ml 3600 ml Ultrafiltrate 2500 ml 4500 ml # Bowel Movements 0 Exam General appearance: Awake, alert, oriented x3. In no acute distress. HEENT: No pallor. No jaundice. No JVD. No lymphadenopathy. No thyroid enlargement. Heart: Regular rhythm. Normal S1, S2. Systolic murmur noted. Positive valve click. Lungs clear to auscultation bilaterally. No wheezing. No rhonchi. No accessory muscle use. Abdomen: Soft, nontender, nondistended. No hepatosplenomegaly. Tender over surgical incision Extremities : No edema, cyanosis or clubbing of fingers. Skin: Right tunneled cath in place. Lab and Diagnostics Result Diagram: 03/31/17 0905 03/27/17 0900 Plan Impression 1. End-stage renal disease, on hemodialysis every Tuesday, Tuesday, and Tuesday via tunnelled catheter. s/p PD cath placement. 2. History of endocarditis, status post mechanical aortic and mitral valve replacement. 3. History of ventricular fibrillation, status post automatic implantable cardioverter-defibrillator. 4. Paroxysmal atrial fibrillation. 5. Chronic anticoagulation. 6. CHB status post pacemaker placement. 7. Nonischemic cardiomyopathy with ejection fraction 40%. PLAN: 1. Continue heparin gtt. Pharmacy to dose warfarin. 2. Next HD on Tuesday. 3. Daily INR, d/c once INR therapeutic ~ 2.5-3.5. Pedro Klein MD Mar 31, 2017 17:02
[2017-03-31] MEDS: Heparin 25K Unit/500mL 0.45 NS 25,000 UNIT in IV Premix 1 EACH IV SCH (17:16)
--- NOTE | 2017-03-31 17:36 | NUR ---
Heparin Pt bridging on heparin gtt back to warfarin. Pt's INR 1.06 today, warfarin dose increased back to 10mg. Pt's heparin gtt adjusted according to heparin cardiac protocol.
[2017-03-31 19:51] VITALS: BP 109/67; PULSE 76; RESP 18
[2017-03-31 23:42] VITALS: BP 99/65; PULSE 75; RESP 16; O2SAT 100
[2017-04-01] MEDS: Sodium Chloride LOK Flush 10 mL Syringe IVFLUSH SCH ×3 (00:30→16:30)
--- NOTE | 2017-04-01 01:32 | NUR ---
Ptt/Tele On Heparin Gtt @ 1425 u/, Ptt Heparin 49.1, Bolus 1000 U and increase Gtt by 50, Not on tele, asked Hospitalist for clarity , pt refused tele , stating his wedding florist says he doesn't need it. Has pain RT incision , controlled w Morphine . A&O x3 using call light appropriately.
[2017-04-01 02:34] LABS: INR 1.17 ratio
[2017-04-01 03:16] VITALS: BP 109/70; PULSE 75; RESP 16; O2SAT 100
[2017-04-01 07:56] VITALS: BP 112/73; PULSE 75; RESP 16; O2SAT 100
[2017-04-01] MEDS: Pantoprazole 40 mg ER24 Tablet PO SCH (07:57)
--- NOTE | 2017-04-01 08:06 | NUR ---
HD pt alert and oriented. pt ordered for HD this am. phone report given to MARICRUZ Bauer. pt transported via bed with heparin infusion to rm 244 by the window at 0800.
[2017-04-01 08:19] VITALS: BP 115/76; PULSE 75
--- NOTE | 2017-04-01 11:03 | PCM.PHAPRO ---
Progress Fatigue, uremia WARFARIN: Indication: MVR and AVR with afib Held prior to admit for procedure, at baseline of 0.97 Home dose 7.5mg alt with 10mg a/ Requires bridge with ADIVH until fully anticoagulated, at goal INR of 2.5- 3.5 p/ Continue with 10mg for now Date Mar 30-Mar 31-Apr 01-Apr 02-Apr 03-Apr 04-Mar 05-Apr INR 0.97 1.0 1.03 1.12 INR change 0.03 0.03 0.09 Warf Dose 10 7.5MG/D 10mg 10MG Main Patel S Pharm D Apr 01, 2017 11:03
--- NOTE | 2017-04-01 12:05 | PCM.PNNEPH ---
Subjective Date of Service Apr 01, 2017 Subjective Patient is doing quite well following insertion of his peritoneal dialysis catheter. Right now we are waiting for his INR to become therapeutic once again prior to discharge. He denies any headache, chest pain, nausea or vomiting. This morning his PT was 12.6 with an INR of 1.17. Exam Vital Signs Vital Sign - Last Date Time Temp Pulse Resp B/P Pulse Ox O2 Delivery O2 Flow Rate FiO2 04/01/17 08:19 75 04/01/17 07:56 36.8 16 112/73 100 Room Air 03/29/17 10:35 8 Intake and Output 03/31/17 03/31/17 04/01/17 Cumulative From/Thru 15:00 23:00 07:00 03/27/17 08:42 - 04/01/17 06:27 Intake Total 1229 ml 659 ml 8208 ml Output Total 800 ml 500 ml 9400 ml Balance 429 ml 159 ml -1192 ml Intake Oral 925 ml 300 ml 5255 ml IV Total 304 ml 359 ml 2953 ml Output Urine Total 800 ml 500 ml 4900 ml Ultrafiltrate 4500 ml # Bowel Movements 0 0 Exam Neck is supple without adenopathy, or megaly, or jugular venous distention. Lungs are clear to auscultation. Heart was regular and rhythmical soft systolic murmur. Abdomen is soft without any tenderness rebound guarding masses or hepatosplenomegaly. There is 2 sterile surgical dressings applied over where the peritoneal dialysis catheter was placed were not removed. Extremities not showing evidence of any clubbing cyanosis or edema. Skin turgor is good. Lab and Diagnostics Result Diagram: 03/31/17 0905 03/27/17 0900 Plan Impression Impression #1 end-stage renal disease dialysis dependent #2 status post peritoneal dialysis catheter placement 3 subtherapeutic INR. Recommendation #1 patient is to be dialyzed today for 4 hours on a max dialyzer, 2 potassium bath , 400 blood flow was 600 dialysate flow, no heparin, and 3 L of fluid to be removed. Once his INR is therapeutic he can be discharged. Temo Peralta DO Apr 01, 2017 12:05
[2017-04-01] MEDS: Heparin 25K Unit/500mL 0.45 NS 25,000 UNIT in IV Premix 1 EACH IV SCH (12:33)
--- NOTE | 2017-04-01 12:45 | NUR ---
Dialysis note: 4 hours tx 2600 ml net UF per pt's request Right catheter, dsg changed, no s/s of infection noted Pls see DTR for VS details Qb 400 No extra heparin given, already on heparin drip O2 @ 2L via NC on during tx Tolerated tx, slept at intervals Catheter flushed, heparin dwelled and secured Stable condition at end of tx Report given to Lizette ALCANTARA
--- NOTE | 2017-04-01 13:15 | NUR ---
Return from HD pt alert and oriented. oob sitting in chair. at bedside. denied pain at this time. call light in reach. status report received from MARICRUZ Bauer care continues.
--- NOTE | 2017-04-01 14:32 | PCM.PNSURG ---
Subjective Date of Service: Apr 01, 2017 Date of Service: Apr 01, 2017 Visit Information: Reason for Visit End Stage Renal Failure Surgery/Surgery Date Post-Op Day # 3 s/p PD catheter placement Date of Admission: Mar 27, 2017 at 08:16 Hospital Day # Subjective: Just returned from HD today and interviewed and examined. Offers no c/o's except lengthy wait for bridging process to warfarin. Postop General: No Complaints Gastrointestinal: Good Appetite Objective Objective Pleasant male in no apparent distress. Vital Sign- Last 8 Hours Date Time Temp Pulse Resp B/P Pulse Ox O2 Delivery O2 Flow Rate FiO2 04/01/17 08:19 75 04/01/17 07:56 36.8 75 16 112/73 100 Room Air Intake and Output- Last 8 Hour 04/01/17 Cumulative From/Thru 07:00 03/27/17 08:42 - 04/01/17 06:27 Intake Total 659 ml 8208 ml Output Total 500 ml 9400 ml Balance 159 ml -1192 ml Intake Oral 300 ml 5255 ml IV Total 359 ml 2953 ml Output Urine Total 500 ml 4900 ml Ultrafiltrate 4500 ml # Bowel Movements 0 General: Alert, Cooperative, No Acute Distress Lungs: Clear to Auscultation Heart: Regular Rate/Rhythm Abdomen: Soft, Appropriately tender SURGICAL WOUND : Wound General Appearence: Intact, Well Approximated, No Erythema, No Discharge (dry) Dressing & Drainage Status: Intact, Minimal, No Purulent Drainage, No Odor Result Diagram: 03/31/17 0905 03/27/17 0900 Lab & Micro Results: INR 1.17 Assessment & Plan Impression stable postoperative course s/p PD catheter insertion. - No evidence of discharge or bleeding. Problems: (1) Chronic systolic congestive heart failure, NYHA class 2 Status: Chronic ICD Code: I50.22 (2) H/O mechanical aortic valve replacement Status: Chronic ICD Code: Z95.2 (3) H/O mitral valve replacement with mechanical valve Status: Chronic ICD Code: Z95.2 (4) ESRD (end stage renal disease) Status: Chronic ICD Code: N18.6 (5) H/O ventricular fibrillation Status: Resolved ICD Code: Z86.79 (6) Paroxysmal a-fib Status: Chronic ICD Code: I48.0 (7) Warfarin anticoagulation Status: Chronic ICD Code: Z79.01 (8) AICD (automatic cardioverter/defibrillator) present Status: Chronic ICD Code: Z95.810 (9) Cardiac pacemaker in situ Comment: As mentioned above we will go ahead and interrogate his device to see if his working appropriately and as well as to evaluate the arrhythmia that caused his cardiac arrest. Last Edited By: Mitchell Jenkins MD on Jun 12, 2014 09:53 Status: Resolved ICD Code: Z95.0 (10) Complete heart block by electrocardiogram Status: Resolved ICD Code: I44.2 Plan Continue current management of anticoagulation. Resuscitation Status: CPR: Attempt Resuscitation Seven Garcia PA-C Apr 01, 2017 14:32
--- NOTE | 2017-04-01 15:20 | NUR ---
Social work: Continued Discharge pLanning/Multidisciplinary Rounds D: pt discussed in am rounds. MD team still working on pt's INR. They are making slow progress but still anticipate the patient to require several more days of hospitalization. Pt with a PD cath placed. briar shop supervisor requested BLACK ASH BURNER OPERATOR confirm with the kidney center that they are following the patient for peritenal dialysis. t/c to Leyla Brownlee with the [facility]; she confirms that they are following the patient for PD. A: Pt who is I at baseline and ambulating I during admission P: Evolving; Anticipate pt to discharge home via POV with PD through the [facility]. SAY Rod
[2017-04-01 16:00] VITALS: BP 118/80; PULSE 74; RESP 18; O2SAT 99
--- NOTE | 2017-04-01 16:57 | PCM.PNMED ---
Subjective Date of Service Apr 01, 2017 Subjective 56-year-old man with ESRD on hemodialysis, history of mechanical M.D. and aVR admitted for anticoagulant bridging at time of peritoneal dialysis catheter placement. Peritoneal dialysis Catheter placed on 03/29/17. Postoperative abdominal wall pain is now improving. No bowel activity for several days, some flatulence today. RUQ or R rib pain today. No nausea or dyspnea. Frustration with the lack of progress on INR. Exam Vital Signs Vital Sign - Last Date Time Temp Pulse Resp B/P Pulse Ox O2 Delivery O2 Flow Rate FiO2 04/01/17 08:19 75 04/01/17 07:56 36.8 16 112/73 100 Room Air 03/29/17 10:35 8 Intake and Output 03/31/17 03/31/17 04/01/17 Cumulative From/Thru 15:00 23:00 07:00 03/27/17 08:42 - 04/01/17 06:27 Intake Total 1229 ml 659 ml 8208 ml Output Total 800 ml 500 ml 9400 ml Balance 429 ml 159 ml -1192 ml Intake Oral 925 ml 300 ml 5255 ml IV Total 304 ml 359 ml 2953 ml Output Urine Total 800 ml 500 ml 4900 ml Ultrafiltrate 4500 ml # Bowel Movements 0 0 Exam General: Healthy-appearing, no acute distress HEENT: sclerae anicteric, oral mucosa moist Neck: no JVD Chest: clear to auscultation Cardiac: S1S2, mechanical valve sounds, Abdomen: BS normal, mild tenderness around HD cath surgical incision site, no erythema Extremities: No pitting edema Neuro: A&O, cranial nerves symmetric, motor strength 5/5, coordination normal IVs and Medications Medications Reviewed: Medications were reviewed in detail Lab and Diagnostics Result Diagram: 03/31/1790403/27/17 09 Assessment & Plan Active medical problems: # Anticoagulant bridging - resumed warfarin on 03/29. Currently on heparin drip. - Increase warfarin to 10 mg daily until beginning to see INR rise - Plan to continue heparin bridging for warfarin treatment and discharge with INR 2.5-3.5. - Daily INR # End-stage renal disease, POA. - Continue Hemodialysis, schedule per the nephrology service. - Plan initiation of peritoneal dialysis in approximately 2 weeks # Pain management, not POA. - Continue narcotic analgesics as needed and taper. Plan by mouth regimen prior to discharge # Constipation, not POA. - Aggressive bowel regimen - Increase physical activity Resolving, stable problems: Chronic systolic CHF. Currently asymptomatic. Prior aortic and mitral valve replacement, mechanical. POA. Plan is bridging as above. Ankylosing spondylitis, POA. Acetaminophen as needed. Essential hypertension, POA. Resume metoprolol 25 mg, no change to medical plan otherwise. CODE STATUS: Patient is full resuscitation Discharge planning: Inpatient status, expect 3 more days Resuscitation Status: CPR: Attempt Resuscitation Time spent 20 minutes Aldo Carrera MD Apr 01, 2017 16:58
[2017-04-01 20:17] VITALS: BP 108/72; PULSE 75; RESP 16; O2SAT 100
[2017-04-01] MEDS: Polyethylene Glycol (PEG) 17 Gm Powder PO PRN (20:55)
[2017-04-01 23:21] VITALS: BP 110/71; PULSE 75; RESP 16; O2SAT 98
--- NOTE | 2017-04-02 00:16 | NUR ---
heparin/Gas-pain/ Heparin Cardiac @ 1425, C/O abd pain 04/14 , consult w resident MD, admin Miralax and simethicone as well as pain med ,Flatus no stool , shallow breathing rt incisional pain exacerbated by constipation. Room air, A&O x3 using call light appropriately, No tele,
[2017-04-02] MEDS: Sodium Chloride LOK Flush 10 mL Syringe IVFLUSH SCH ×3 (00:30→15:28)
[2017-04-02 03:34] LABS: INR 1.37 ratio
[2017-04-02 04:29] VITALS: BP 107/69; PULSE 75; RESP 16; O2SAT 99
[2017-04-02] MEDS: Heparin 25K Unit/500mL 0.45 NS 25,000 UNIT in IV Premix 1 EACH IV SCH (06:20)
[2017-04-02] MEDS: Polyethylene Glycol (PEG) 17 Gm Powder PO SCH (08:30)
[2017-04-02 08:58] VITALS: BP 116/76; PULSE 70; RESP 16; O2SAT 99
[2017-04-02] MEDS: Pantoprazole 40 mg ER24 Tablet PO SCH (09:00)
--- NOTE | 2017-04-02 11:24 | PCM.PNNEPH ---
Subjective Date of Service Apr 02, 2017 Subjective Patient continues to do well. He is tolerating his diet and is ambulating without difficulty. Unfortunately his INR remained subtherapeutic with a PT of 14.7 and an INR of 1.37. Exam Vital Signs Vital Sign - Last Date Time Temp Pulse Resp B/P Pulse Ox O2 Delivery O2 Flow Rate FiO2 04/02/17 08:58 37.6 70 16 116/76 99 Room Air 03/29/17 10:35 8 Intake and Output 04/01/17 04/01/17 04/02/17 Cumulative From/Thru 15:00 23:00 07:00 03/27/17 08:42 - 04/02/17 06:21 Intake Total 1100 ml 981 ml 33978 ml Output Total 2600 ml 400 ml 300 ml 92541 ml Balance -2600 ml 700 ml 681 ml -2411 ml Intake Oral 800 ml 600 ml 6655 ml IV Total 300 ml 381 ml 3634 ml Output Urine Total 400 ml 300 ml 5600 ml Ultrafiltrate 2600 ml 7100 ml # Bowel Movements 0 Exam Neck is supple without adenopathy, thyromegaly, or jugular venous distention. Lungs are clear to auscultation. Heart was regular and rhythmical with a mechanical click from his prosthetic heart valve. Abdomen soft without any tenderness rebound guarding masses or hepatosplenomegaly. Extremities do not show any evidence of any clubbing cyanosis or edema. Skin turgor is good. Lab and Diagnostics Result Diagram: 03/31/17 0905 03/27/17 0900 Plan Impression Impression #1 end-stage renal disease dialysis dependent N therapeutic INR Recommendations #1 once his INR is therapeutic she can be discharged. Temo Peralta DO Apr 02, 2017 11:24
--- NOTE | 2017-04-02 15:55 | NUR ---
ELIJAH signed by pt
--- NOTE | 2017-04-02 16:29 | PCM.PNMED ---
Subjective Date of Service Apr 02, 2017 Subjective 56-year-old man with ESRD on hemodialysis, history of mechanical M.D. and aVR admitted for anticoagulant bridging at time of peritoneal dialysis catheter placement. Peritoneal dialysis Catheter placed on 03/29/17. Postoperative pain improving. No bowel activity for several days, some flatulence today. Moderate RUQ or R lower rib pain since 03/31. No nausea or dyspnea. Frustration with slow progress on INR. Exam Vital Signs Vital Sign - Last Date Time Temp Pulse Resp B/P Pulse Ox O2 Delivery O2 Flow Rate FiO2 04/02/17 08:58 37.6 70 16 116/76 99 Room Air 03/29/17 10:35 8 Intake and Output 04/01/17 04/01/17 04/02/17 Cumulative From/Thru 15:00 23:00 07:00 03/27/17 08:42 - 04/02/17 06:21 Intake Total 1100 ml 981 ml 97923 ml Output Total 2600 ml 400 ml 300 ml 25043 ml Balance -2600 ml 700 ml 681 ml -2411 ml Intake Oral 800 ml 600 ml 6655 ml IV Total 300 ml 381 ml 3634 ml Output Urine Total 400 ml 300 ml 5600 ml Ultrafiltrate 2600 ml 7100 ml # Bowel Movements 0 Exam General: Healthy-appearing, no acute distress HEENT: sclerae anicteric, oral mucosa moist Neck: no JVD Chest: clear to auscultation Cardiac: S1S2, mechanical valve sounds, no murmur Abdomen: BS normal, mild tenderness around HD cath surgical incision site, no erythema, diffuse tender to palpation Extremities: No pitting edema Neuro: A&O, cranial nerves symmetric, motor strength 5/5, coordination normal IVs and Medications Medications Reviewed: Medications were reviewed in detail Lab and Diagnostics Result Diagram: 03/31/1790403/27/17 0900 Assessment & Plan Active medical problems: # Anticoagulant bridging - resumed warfarin on 03/29. Currently on heparin drip. - Increase warfarin to 10 mg daily until beginning to see INR rise - Plan to continue heparin bridging for warfarin treatment and discharge with INR 2.5-3.5. - Daily INR # End-stage renal disease, POA. - Continue Hemodialysis, schedule per the nephrology service. - Plan initiation of peritoneal dialysis in approximately 2 weeks # Right upper quadrant or lower thoracic pain, not POA. Seems most likely related to severe constipation. No evidence of hepatobiliary disease. Is not seem related to peritoneal dialysis catheter placement. - Aggressive bowel regimen then reevaluate # Pain management, not POA. - Continue narcotic analgesics as needed and taper. Plan by mouth regimen prior to discharge # Constipation, not POA. - Aggressive bowel regimen - Increase physical activity Resolving, stable problems: Chronic systolic CHF. Currently asymptomatic. Prior aortic and mitral valve replacement, mechanical. POA. Plan is bridging as above. Ankylosing spondylitis, POA. Acetaminophen as needed. Essential hypertension, POA. Resume metoprolol 25 mg, no change to medical plan otherwise. CODE STATUS: Patient is full resuscitation Discharge planning: Inpatient status, expect 3 more days Resuscitation Status: CPR: Attempt Resuscitation Time spent 25 minutes Aldo Carrera MD Apr 02, 2017 16:29
[2017-04-02] MEDS ORDERED: PEG/Electrolytes 4,000 mL Solution PO PRN (16:30)
[2017-04-02 17:20] VITALS: BP 106/71; PULSE 75; RESP 20; O2SAT 99
--- NOTE | 2017-04-02 17:46 | NUR ---
Pain/BM Patient has had no bowel movement since 03/28. Has had increasing abdominal pain/discomfort. Patient has received mag citrate and multiple bowel medications with no effect. Will try another dose of mag citrate then suppository if no results.
[2017-04-02 20:22] VITALS: BP 112/73; PULSE 75; RESP 14; O2SAT 97
[2017-04-03] MEDS: Sodium Chloride LOK Flush 10 mL Syringe IVFLUSH SCH ×4 (00:30→21:27)
[2017-04-03 00:39] VITALS: BP 110/74; PULSE 76; RESP 14; O2SAT 98
[2017-04-03 03:04] LABS: INR 1.58 ratio
--- NOTE | 2017-04-03 05:42 | NUR ---
Pain/GI IVP MS given x1 for abdominal pain unresolved w routine dilaudid with effective results. Pt reports 2 large, watery BMs after 2 glasses of GoLytely. Heparin gtt rate unchanged, 1375 units/hr. Care continues.
[2017-04-03 07:52] VITALS: BP 110/72; PULSE 75; RESP 16; O2SAT 100
[2017-04-03] MEDS: Pantoprazole 40 mg ER24 Tablet PO SCH (08:00)
[2017-04-03] MEDS: Polyethylene Glycol (PEG) 17 Gm Powder PO SCH (08:01)
--- NOTE | 2017-04-03 10:13 | PCM.PHAPRO ---
Progress Fatigue, uremia WARFARIN DOSING PER PHARMACY Date Mar 30-Mar 31-Apr 01-Apr 02-Apr 03-Mar INR 0.97 1.0 1.03 1.12 1.37 1.58 INR change 0.03 0.03 0.09 0.25 0.21 Warf Dose 10 7.5MG/D 10mg 10MG 10MG 10 MG Nadia Allen PharmD Apr 03, 2017 10:13
--- NOTE | 2017-04-03 11:31 | PCM.PNNEPH ---
Subjective Date of Service Apr 03, 2017 Subjective The patient's PT and INR still remains subtherapeutic today with levels being 17.1 and 1.58. Patient is quite upset and frustrated and I had a long discussion with him and once again reiterated to him why this needs to be therapeutic prior to discharge. I will schedule dialysis for tomorrow. Exam Vital Signs Vital Sign - Last Date Time Temp Pulse Resp B/P Pulse Ox O2 Delivery O2 Flow Rate FiO2 04/03/17 07:52 36.9 75 16 110/72 100 Room Air 03/29/17 10:35 8 Intake and Output 04/02/17 04/02/17 04/03/17 Cumulative From/Thru 15:00 23:00 07:00 03/27/17 08:42 - 04/03/17 05:41 Intake Total 1100 ml 1028 ml 88765 ml Output Total 800 ml 402 ml 16733 ml Balance 300 ml 626 ml -1485 ml Intake Oral 480 ml 700 ml 7835 ml IV Total 620 ml 328 ml 4582 ml Output Urine Total 800 ml 400 ml 6800 ml Stool Total 2 ml 2 ml Ultrafiltrate 7100 ml # Bowel Movements 0 Lab and Diagnostics Result Diagram: 04/03/17 0905 Temo Peralta DO Apr 03, 2017 11:31
--- NOTE | 2017-04-03 14:14 | PCM.PNMED ---
Subjective Date of Service Apr 03, 2017 Subjective 56-year-old man with ESRD on hemodialysis, history of mechanical M.D. and aVR admitted for anticoagulant bridging at time of peritoneal dialysis catheter placement. Peritoneal dialysis Catheter placed on 03/29/17. Aggressive bowel regimen finally relieved RUQ or R lower rib pain. No nausea or dyspnea. Frustration with slow progress on INR. Exam Vital Signs Vital Sign - Last Date Time Temp Pulse Resp B/P Pulse Ox O2 Delivery O2 Flow Rate FiO2 04/03/17 07:52 36.9 75 16 110/72 100 Room Air 03/29/17 10:35 8 Intake and Output 04/02/17 04/02/17 04/03/17 Cumulative From/Thru 15:00 23:00 07:00 03/27/17 08:42 - 04/03/17 05:41 Intake Total 1100 ml 1028 ml 36931 ml Output Total 800 ml 402 ml 22343 ml Balance 300 ml 626 ml -1485 ml Intake Oral 480 ml 700 ml 7835 ml IV Total 620 ml 328 ml 4582 ml Output Urine Total 800 ml 400 ml 6800 ml Stool Total 2 ml 2 ml Ultrafiltrate 7100 ml # Bowel Movements 0 Exam General: Healthy-appearing, dysphoric but no acute distress HEENT: sclerae anicteric, oral mucosa moist Neck: no JVD Chest: clear to auscultation Cardiac: S1S2, mechanical valve sounds, no murmur Abdomen: BS normal, nontender, soft Extremities: No pitting edema Neuro: A&O, cranial nerves symmetric, motor strength 5/5, coordination normal IVs and Medications Medications Reviewed: Medications were reviewed in detail Lab and Diagnostics Result Diagram: 04/03/17 0905 Assessment & Plan Active medical problems: # Anticoagulant bridging - resumed warfarin on 03/29. 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 Currently on heparin drip. - Continue warfarin to 10 mg daily - Plan to continue heparin bridging for warfarin treatment and discharge with INR 2.5-3.5. - Daily INR # End-stage renal disease, POA. - Continue Hemodialysis, schedule per the nephrology service. - Plan initiation of peritoneal dialysis in approximately 2 weeks # Right upper quadrant or lower thoracic pain, not POA. Related to severe constipation. No evidence of hepatobiliary disease. Is not seem related to peritoneal dialysis catheter placement. -Laxatives as needed # Pain management, not POA. - Continue narcotic analgesics as needed and taper. Plan by mouth regimen prior to discharge # Constipation, not POA. - Aggressive bowel regimen - Increase physical activity Resolving, stable problems: Chronic systolic CHF. Currently asymptomatic. Prior aortic and mitral valve replacement, mechanical. POA. Plan is bridging as above. Ankylosing spondylitis, POA. Acetaminophen as needed. Essential hypertension, POA. Resume metoprolol 25 mg, no change to medical plan otherwise. CODE STATUS: Patient is full resuscitation Discharge planning: Inpatient status, expect 3 more days Resuscitation Status: CPR: Attempt Resuscitation Time spent 15 minutes Aldo Carrera MD Apr 03, 2017 14:14
[2017-04-03 16:28] VITALS: BP 104/64; PULSE 75; RESP 20; O2SAT 100
--- NOTE | 2017-04-03 17:12 | NUR ---
INR Patient INR subtherapeutic at 1.58. Patient expressed frustration and anger as he was hoping to return to work tomorrow. Actively listened to pts concerns. Patient hopeful that INR will be therapeutic tomorrow.
[2017-04-03] MEDS: Heparin 25K Unit/500mL 0.45 NS 25,000 UNIT in IV Premix 1 EACH IV SCH (18:45)
[2017-04-03 21:18] VITALS: BP 108/65; PULSE 76; RESP 16; O2SAT 98
[2017-04-04 02:50] LABS: INR 1.87 ratio
--- NOTE | 2017-04-04 03:07 | NUR ---
Bowels Pt reports having large results post Golytely and refused to take any sennosides. Pt encouraged to drink plenty of water.
[2017-04-04 03:21] VITALS: BP 97/60; PULSE 75; RESP 20; O2SAT 99
[2017-04-04 08:17] VITALS: BP 106/62; PULSE 75; RESP 18; O2SAT 100
[2017-04-04] MEDS: Pantoprazole 40 mg ER24 Tablet PO SCH (08:19)
[2017-04-04] MEDS: Sodium Chloride LOK Flush 10 mL Syringe IVFLUSH SCH ×3 (08:20→23:36)
[2017-04-04] MEDS: Polyethylene Glycol (PEG) 17 Gm Powder PO SCH (08:20)
[2017-04-04 08:54] VITALS: BP 111/64; PULSE 75
[2017-04-04 08:55] VITALS: BP 101/68; PULSE 72; RESP 18; O2SAT 98
--- NOTE | 2017-04-04 10:54 | PCM.PNNEPH ---
Subjective Date of Service Apr 04, 2017 Subjective Patient's PT and INR are improving but still subtherapeutic INR 20.3 and 1.87 respectively I suspect that he will probably be therapeutic tomorrow. He has no new complaints the patient was seen in dialysis. Exam Vital Signs Vital Sign - Last Date Time Temp Pulse Resp B/P Pulse Ox O2 Delivery O2 Flow Rate FiO2 04/04/17 08:55 36.8 72 18 101/68 98 Nasal Cannula 2.00 Intake and Output 04/03/17 04/03/17 04/04/17 Cumulative From/Thru 15:00 23:00 07:00 03/27/17 08:42 - 04/04/17 06:54 Intake Total 1621 ml 1064 ml 38017 ml Output Total 800 ml 600 ml 28931 ml Balance 821 ml 464 ml -200 ml Intake Oral 1280 ml 700 ml 9815 ml IV Total 341 ml 364 ml 5287 ml Output Urine Total 800 ml 600 ml 8200 ml Stool Total 2 ml Ultrafiltrate 7100 ml # Voids 2 2 # Bowel Movements 1 1 Exam Lungs are clear to auscultation. Heart is regular with a soft Systolic murmur and a lot of mechanical click Abdomen is soft without any tenderness rebound guarding masses or hepatosplenomegaly. Extremities do not show any evidence of any clubbing cyanosis or edema. Skin turgor is good. Lab and Diagnostics Result Diagram: 04/03/17 0905 Plan Impression Impression #1 end-stage renal disease dialysis dependent number to subtherapeutic anticoagulation Recommendations #1 patient will dialyze today for A MAX DIALYZER, 2 POTASSIUM BATH, 400 BLOOD FLOW, 600 DIALYSATE FLOW, NO ADDITIONAL HEPARIN WILL BE GIVEN AND WILL TAKE 2-3 L TOLERATED. Temo Peralta DO Apr 04, 2017 10:54
--- NOTE | 2017-04-04 12:40 | NUR ---
Dialysis note: 4 hours tx 2000 ml net UF Right catheter, dsg dry and intact Pls see DTR for VS details Qb 400 No extra heparin given, already on heparin drip O2 @ 2L via NC on during tx Tolerated tx, slept at intervals Catheter flushed, heparin dwelled and secured Stable condition at end of tx Report given to Yady ALCANTARA
[2017-04-04] MEDS: Heparin 25K Unit/500mL 0.45 NS 25,000 UNIT in IV Premix 1 EACH IV SCH (14:00)
--- NOTE | 2017-04-04 14:16 | NUR ---
Dialysis Pt. transferred from [facility] to [facility] at 0840. He returned to [facility] at 1345 at completion of dialysis. 2L fluid out and last BP 102/69 and HR 75 per dialysis nurse, Harriet Multani RN. Report called to Leila Macias RN.
--- NOTE | 2017-04-04 14:24 | PCM.PNSURG ---
Subjective Date of Service: Apr 04, 2017 Date of Service: Apr 04, 2017 Visit Information: Reason for Visit End Stage Renal Failure Surgery/Surgery Date Post-Op Day # 6 status post laparoscopic placement of peritoneal dialysis catheter Date of Admission: Mar 27, 2017 at 08:16 Hospital Day # Subjective: Seen patient today in dialysis doing well with no pain or other postsurgical concerns except for the lengthy wait of his postsurgical anticoagulation bridging process. Postop General: No Complaints Gastrointestinal: Good Appetite Pain Management: No or Minimal Pain Postop Activity: Ambulating Independently Objective Vital Sign- Last 8 Hours Date Time Temp Pulse Resp B/P Pulse Ox O2 Delivery O2 Flow Rate FiO2 04/04/17 08:55 36.8 72 18 101/68 98 Nasal Cannula 2.00 04/04/17 08:54 75 04/04/17 08:17 36.4 75 18 106/62 100 Room Air Intake and Output- Last 8 Hour 04/04/17 Cumulative From/Thru 07:00 03/27/17 08:42 - 04/04/17 06:54 Intake Total 1064 ml 56302 ml Output Total 600 ml 30297 ml Balance 464 ml -200 ml Intake Oral 700 ml 9815 ml IV Total 364 ml 5287 ml Output Urine Total 600 ml 8200 ml Stool Total 2 ml Ultrafiltrate 7100 ml # Voids 2 2 # Bowel Movements 1 General: Alert, Oriented X3, Cooperative, No Acute Distress Lungs: Clear to Auscultation Heart: Exam Unremarkable Abdomen: Soft, Non-tender, Other (peritoneal dialysis catheter in place) SURGICAL WOUND : Wound General Appearence: Sutures, Intact, Well Approximated, Incision Healing, No Erythema, No Discharge, No Inflammatory Changes Dressing & Drainage Status: Dressing Removed (removed outer Band-Aids ) Extremities: Thigh&Calf Soft/Nontender Neuro: Normal Speech Result Diagram: 04/03/17 0905 Assessment & Plan Impression Primary Diagnosis: 1. End-stage renal disease 2. Status post laparoscopic placement of peritoneal dialysis catheter Other Medical History Prior aortic and mitral valve replacement, mechanical on Coumadin Ankylosing spondylitis Essential hypertension Problems: (1) Chronic systolic congestive heart failure, NYHA class 2 Status: Chronic ICD Code: I50.22 (2) H/O mechanical aortic valve replacement Status: Chronic ICD Code: Z95.2 (3) H/O mitral valve replacement with mechanical valve Status: Chronic ICD Code: Z95.2 (4) ESRD (end stage renal disease) Status: Chronic ICD Code: N18.6 (5) H/O ventricular fibrillation Status: Resolved ICD Code: Z86.79 (6) Paroxysmal a-fib Status: Chronic ICD Code: I48.0 (7) Warfarin anticoagulation Status: Chronic ICD Code: Z79.01 (8) AICD (automatic cardioverter/defibrillator) present Status: Chronic ICD Code: Z95.810 (9) Cardiac pacemaker in situ Comment: As mentioned above we will go ahead and interrogate his device to see if his working appropriately and as well as to evaluate the arrhythmia that caused his cardiac arrest. Last Edited By: Mitchell Jenkins MD on Jun 12, 2014 09:53 Status: Resolved ICD Code: Z95.0 (10) Complete heart block by electrocardiogram Status: Resolved ICD Code: I44.2 Plan 1. Continue with your plans and current anticoagulation. 2. We will sign off. Follow up with general surgery as needed. Resuscitation Status: CPR: Attempt Resuscitation Peng Dao PA-C Apr 04, 2017 14:24
[2017-04-04 15:01] VITALS: BP 118/71; PULSE 74; RESP 16; O2SAT 95
--- NOTE | 2017-04-04 17:40 | NUR ---
Transfer/TELE/Pain The pt was transferred to [facility] [place] [facility] [place]. Before transfer, the pt converted from Afib to SR. aware. Cardiology is planning on placing a pacer - date unknown. The pt continues to be in SR with no reports of chest pain or discomfort. The pt reported an 8/10 headache after transfer which was relieved with PO tylenol. Addendum: 04/04/17 at 1747 by IRA JOHNSON RN ENTERED ON WRONG PATIENT
--- NOTE | 2017-04-04 18:57 | PCM.PNMED ---
Subjective Date of Service Apr 04, 2017 Subjective 56-year-old man with ESRD on hemodialysis, history of mechanical M.D. and aVR admitted for anticoagulant bridging at time of peritoneal dialysis catheter placement. Peritoneal dialysis Catheter placed on 03/29/17. No nausea or dyspnea. Continued frustration with slow progress on INR. Tolerated dialysis well today Exam Vital Signs Vital Sign - Last Date Time Temp Pulse Resp B/P Pulse Ox O2 Delivery O2 Flow Rate FiO2 04/04/17 15:01 37.0 74 16 118/71 95 Room Air 04/04/17 08:55 2.00 Intake and Output 04/03/17 04/03/17 04/04/17 Cumulative From/Thru 15:00 23:00 07:00 03/27/17 08:42 - 04/04/17 06:54 Intake Total 1621 ml 1064 ml 41068 ml Output Total 800 ml 600 ml 32484 ml Balance 821 ml 464 ml -200 ml Intake Oral 1280 ml 700 ml 9815 ml IV Total 341 ml 364 ml 5287 ml Output Urine Total 800 ml 600 ml 8200 ml Stool Total 2 ml Ultrafiltrate 7100 ml # Voids 2 2 # Bowel Movements 1 1 Exam General: Dysphoric but no acute distress HEENT: sclerae anicteric, oral mucosa moist Neck: no JVD Chest: clear to auscultation Cardiac: S1S2, mechanical valve sounds, no murmur Abdomen: BS normal, nontender, soft Extremities: No pitting edema Neuro: A&O, cranial nerves symmetric, motor strength 5/5, coordination normal IVs and Medications Medications Reviewed: Medications were reviewed in detail Lab and Diagnostics Result Diagram: 04/03/17 0905 Assessment & Plan Active medical problems: # Anticoagulant bridging - resumed warfarin on 03/29. 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 Currently on heparin drip. - Continue warfarin to 10 mg daily - Plan to continue heparin bridging for warfarin treatment and discharge with INR ~2.5-3.5. - Daily INR # End-stage renal disease, POA. - Continue Hemodialysis, schedule per the nephrology service. - Plan initiation of peritoneal dialysis in approximately 2 weeks # Pain management, not POA. - Continue narcotic analgesics as needed and taper. Plan by mouth regimen prior to discharge # Constipation, not POA. - Aggressive bowel regimen - Increase physical activity Resolving, stable problems: # Right upper quadrant or lower thoracic pain, not POA. Related to severe constipation. No evidence of hepatobiliary disease. Is not seem related to peritoneal dialysis catheter placement. - Resolved with laxative Chronic systolic CHF. Currently asymptomatic. Prior aortic and mitral valve replacement, mechanical. POA. Plan is bridging as above. Ankylosing spondylitis, POA. Acetaminophen as needed. Essential hypertension, POA. Resume metoprolol 25 mg, no change to medical plan otherwise. CODE STATUS: Patient is full resuscitation Discharge planning: Inpatient status, expect 3 more days Resuscitation Status: CPR: Attempt Resuscitation Time spent 15 minutes Aldo Carrera MD Apr 04, 2017 18:57
[2017-04-04 21:27] VITALS: BP 95/54; PULSE 76; RESP 20; O2SAT 100
--- NOTE | 2017-04-04 22:05 | NUR ---
Low BP Provider notified that BP on the left arm at 95/54. Pt asymptomatic. Right arm tends to be lower BP, for this reason left arm is used. Awaiting orders.
[2017-04-05 03:06] LABS: INR 1.95 ratio
[2017-04-05 04:18] VITALS: BP 109/70; PULSE 75; RESP 20; O2SAT 100
[2017-04-05 07:53] VITALS: BP 103/74; PULSE 76; RESP 18; O2SAT 99
[2017-04-05] MEDS: Sodium Chloride LOK Flush 10 mL Syringe IVFLUSH SCH ×2 (08:00→16:30)
[2017-04-05] MEDS: Polyethylene Glycol (PEG) 17 Gm Powder PO SCH (08:02)
[2017-04-05] MEDS: Pantoprazole 40 mg ER24 Tablet PO SCH (08:03)
[2017-04-05 13:06] VITALS: BP 109/74; PULSE 75; RESP 18; O2SAT 100
[2017-04-05] MEDS: Heparin 25K Unit/500mL 0.45 NS 25,000 UNIT in IV Premix 1 EACH IV SCH (13:10)
--- NOTE | 2017-04-05 13:38 | PCM.PNMED ---
Subjective Date of Service Apr 05, 2017 Subjective 56-year-old man with ESRD on hemodialysis, history of mechanical M.D. and aVR admitted for anticoagulant bridging at time of peritoneal dialysis catheter placement. Peritoneal dialysis Catheter placed on 03/29/17. No nausea or dyspnea or other complaints. Continued frustration with slow progress on INR. Exam Vital Signs Vital Sign - Last Date Time Temp Pulse Resp B/P Pulse Ox O2 Delivery O2 Flow Rate FiO2 04/05/17 13:06 37.0 75 18 109/74 100 Room Air 04/04/17 08:55 2.00 Intake and Output 04/04/17 04/04/17 04/05/17 Cumulative From/Thru 15:00 23:00 07:00 03/27/17 08:42 - 04/05/17 05:56 Intake Total 940 ml 600 ml 21826 ml Output Total 2000 ml 775 ml 200 ml 62918 ml Balance -2000 ml 165 ml 400 ml -1635 ml Intake Oral 940 ml 600 ml 08669 ml IV Total 5287 ml Output Urine Total 775 ml 200 ml 9175 ml Stool Total 2 ml Ultrafiltrate 2000 ml 9100 ml # Voids 1 3 # Bowel Movements 1 Exam General: Dysphoric but no acute distress HEENT: sclerae anicteric, oral mucosa moist Chest: clear to auscultation Cardiac: S1S2, mechanical valve sounds, no murmur Abdomen: nontender, soft Neuro: A&O, cranial nerves symmetric, motor strength and coordination normal IVs and Medications Medications Reviewed: Medications were reviewed in detail Lab and Diagnostics Daily INRs on 10 mg per day 0.97, 1.0, 1.03, 1.17, 1.37, 1.58, 1.87, 1.95 Result Diagram: 04/05/17 0823 Assessment & Plan Active medical problems: # Anticoagulant bridging - resumed warfarin on 03/29. Target INR 2.5-3.5 Very slow progress, he may have VKORC1 or CYP 2C19 resistance genotype, but unable to do genetic testing in a timely fashion. Currently on heparin drip. - Continue warfarin to 10 mg daily - One-time extra dose 10 mg on 04/05 (20 mg total today) - Plan to continue heparin bridging for warfarin treatment a - Daily INR # End-stage renal disease, POA. - Continue Hemodialysis, schedule per the nephrology service. - Plan initiation of peritoneal dialysis in approximately 2 weeks # Pain management, not POA. - Continue narcotic analgesics as needed # Constipation, not POA. -Continue bowel regimen - Increase physical activity Resolving, stable problems: # Right upper quadrant or lower thoracic pain, not POA. Related to severe constipation. No evidence of hepatobiliary disease. Is not seem related to peritoneal dialysis catheter placement. - Resolved with laxative Chronic systolic CHF. Currently asymptomatic. Prior aortic and mitral valve replacement, mechanical. POA. Plan is bridging as above. Ankylosing spondylitis, POA. Acetaminophen as needed. Essential hypertension, POA. Resume metoprolol 25 mg, no change to medical plan otherwise. CODE STATUS: Patient is full resuscitation Discharge planning: Inpatient status, expect 2 more days Resuscitation Status: CPR: Attempt Resuscitation Time spent 15 minutes Aldo Carrera MD Apr 05, 2017 13:38
[2017-04-05 15:20] VITALS: BP 113/68; PULSE 99; RESP 18; O2SAT 99
--- NOTE | 2017-04-05 15:20 | NUR ---
Transfer to [facility] [place] w/ch to room 248-1. Able to stand and transfer into bed indep. Heparin infusing 1275 u/hr. Lab in drawing blood.
[2017-04-05 20:13] VITALS: BP 119/72; PULSE 75; RESP 17; O2SAT 98
[2017-04-06] MEDS: Sodium Chloride LOK Flush 10 mL Syringe IVFLUSH SCH ×2 (00:10→08:30)
--- NOTE | 2017-04-06 04:54 | NUR ---
Mobility Pt. A&Ox4, calm, pleasant and cooperative to staff and care, Ind. in rm, steady on feet, uses call light for help, ambulated in the hallway x1, denies any discomfort, vitals stable, call light in reach at all times.
[2017-04-06 06:21] VITALS: BP 122/74; PULSE 77; RESP 17; O2SAT 98
[2017-04-06 07:30] VITALS: BP 113/72; PULSE 75; RESP 18; O2SAT 98
[2017-04-06 07:32] LABS: INR 2.8 ratio
[2017-04-06] MEDS: Pantoprazole 40 mg ER24 Tablet PO SCH (07:36)
[2017-04-06] MEDS: Polyethylene Glycol (PEG) 17 Gm Powder PO SCH (07:36)
[2017-04-06 08:48] VITALS: BP 108/66; PULSE 75
--- NOTE | 2017-04-06 11:57 | PCM.DIMED ---
Discharge Instructions Date of Service Apr 06, 2017 Dates of Hospitalization Mar 27, 2017 at 08:16 Discharge Diagnosis Discharge Diagnosis Status post peritoneal dialysis catheter placement History of Mechanical mitral valve, aortic valve Chronic warfarin anticoagulation target INR 2.5-3.5 Medication Instructions Additional med instructions We recommend that you alternate 10 mg and 7.5 mg warfarin until your INR stabilizes in the range of 2.5-3.5. You should have your INR checked on 04/07/17. Diet Discharge Diet: Renal Diet Activity Discharge Activity: No restrictions Patient Instructions Patient Instructions Guidance and supplies for initiating peritoneal dialysis will be provided by the dialysis center. Please contact them after discharge. Continue your usual hemodialysis at this point. Follow-up plan Contact the INR pro time clinic in the morning. Follow-up with dialysis Center as previously scheduled. Follow-up Provider: Kirill López DO Follow-up with PCP in: Other (as needed) Aldo Carrera MD Apr 06, 2017 11:57
--- NOTE | 2017-04-06 12:45 | NUR ---
Dialysis note: 4 hours tx 2000 ml net UF Right catheter, dsg dry and intact Pls see DTR for VS details Qb 400 No heparin given O2 @ 2L via NC on during tx Tolerated tx, slept at intervals Catheter flushed, heparin dwelled and secured Stable condition at end of tx Report given to Tonya ALCANTARA
--- NOTE | 2017-04-06 13:25 | PCM.PNNEPH ---
Subjective Date of Service Apr 06, 2017 Subjective Patient's PT and INR therapeutic today. His PT is 30.6 and INR is 2.8. He is scheduled to be discharged following dialysis today and he will follow-up in the Coumadin clinic for ongoing regulation of his Coumadin. Exam Vital Signs Vital Sign - Last Date Time Temp Pulse Resp B/P Pulse Ox O2 Delivery O2 Flow Rate FiO2 04/06/17 08:48 75 04/06/17 07:30 37.5 18 113/72 98 Room Air 04/04/17 08:55 2.00 Intake and Output 04/05/17 04/05/17 04/06/17 Cumulative From/Thru 15:00 23:00 07:00 03/27/17 08:42 - 04/06/17 06:21 Intake Total 1341 ml 792 ml 13037 ml Output Total 1150 ml 900 ml 96547 ml Balance 191 ml -108 ml -1552 ml Intake Oral 520 ml 440 ml 78386 ml IV Total 821 ml 352 ml 6460 ml Output Urine Total 1150 ml 900 ml 05138 ml Stool Total 2 ml Ultrafiltrate 9100 ml # Voids 3 # Bowel Movements 1 Exam Neck is supple without adenopathy thyromegaly or jugular venous distention. Lungs are clear to auscultation. Heart is regular and rhythmic with mechanical click noted. Abdomen is soft without any tenderness rebound guarding or masses. There is a small seroma/hematoma over the catheter insertion site and this is non-erythematous. Extremities Show Any Evidence of Any Clubbing Cyanosis or Edema. Skin Turgor Is Good. Lab and Diagnostics Result Diagram: 04/05/17 0823 Plan Impression Impression #1 end-stage renal disease dialysis dependent Recommendations #1 patient dialyzed for 4 hours on a max dialyzer, 2 potassium bath, no additional heparin, 400 blood flow and 600 dialysate flow, and will take 2-3 L of fluid. #2 following dialysis he can be discharged and he has been instructed to contact the peritoneal dialysis or so with the kidney center tomorrow. Temo Peralta DO Apr 06, 2017 13:25
--- NOTE | 2017-04-06 13:56 | NUR ---
Social Work-discharge: Data:EMR reviewed. Pt is on day 10 of hospitalization for end stage renal per H&P. Pt is medically stable for discharge. UR specialist [facility] with [facility] who confirms that pt has been set up for dialysis tomorrow, pt and RN aware. No other SW needs identified. All updated and agreeable to plan. Assessment:Pt who is independent at baseline. Plan:Pt to discharge home today via POV. UR specialist spoke with Leyla [facility] who confirms that pt has been set up for dialysis tomorrow, pt and RN aware. No other SW needs identified. All updated and agreeable to plan. SAY Maqrues
--- NOTE | 2017-04-06 15:13 | NUR ---
Discharge Reviewed DC instructions with patient and . Stated understanding. they plan to call the anticoag clinic for correct warfarin dosing. As Dr Carrera told them one thing and inpt pharmacy wrote an order for another. Has plans on tuesday for peritoneal dialysis teaching at 4 pm. Pt taken out in w/ch to home in private auto with .
--- NOTE | 2017-04-06 19:37 | PCM.DC.MED ---
Discharge Summary Date of Service Apr 06, 2017 Dates of Hospitalization Date of Hospital Admission Mar 27, 2017 at 08:16 Date of Discharge: Apr 06, 2017 Providers: Admitting Physician: Jose A Posadas MD Primary Care Physician: Kirill López DO Attending Physician: Aldo Carrera MD Diagnosis at Time of Discharge Diagnosis at Time of Discharge Status post peritoneal dialysis catheter placement History of Mechanical mitral valve, aortic valve Chronic warfarin anticoagulation target INR 2.5-3.5 Brief History History of Present Illness (per admission note): This is a pleasant 56-year-old gentleman who has a history of aortic and mitral valve replacements with mechanical valves. He also has a history of probable end-stage renal disease and has been on dialysis for last period of time. He has a right subclavian dialysis catheter was removed soon as he has been using this for several months. The patient has veins not amenable to a fistula placement. For that reason he is going to have a PD catheter for peritoneal dialysis placed on Tuesday. He is on chronic warfarin for his mechanical valves and because of his kidney disease he is not a candidate for Lovenox for bridging to his procedure. The patient is here to be admitted for withdrawal of Coumadin and not fractionated heparin drip to bridge him through his procedure until Coumadin is reloaded. He denies any current symptoms including rhinorrhea, cough, sore throat, shortness of breath. No orthopnea, or pedal edema. No recent bleeding problems from Coumadin. No difficulty with bowel movements. No fevers or chills. Hospital Course # Anticoagulant bridging - resumed warfarin on 03/29. Target INR 2.5-3.5 Very slow progress, he may have VKORC1 or CYP 2C19 resistance genotype, but unable to do genetic testing in a timely fashion. Maintained on heparin drip until INR greater than 2.5. He received warfarin to 10 mg daily with incremental increase of approximately 0.15-0.2 per day. One dose of warfarin 20 mg per day on 04/05/17 finely achieve therapeutic range. -Patient was advised to continue 10 mg and 7.5 mg alternating daily doses. - He is advised to contact the INR pro time clinic for a test on 04/07/17 to determine further dosing # End-stage renal disease, POA. - Continue Hemodialysis, schedule per the nephrology service. - Plan initiation of peritoneal dialysis in approximately 2 weeks, to be arranged by dialysis center # Pain management, not POA. -Resolved # Constipation, not POA. -Resolved # Right upper quadrant or lower thoracic pain, not POA. Related to severe constipation. No evidence of hepatobiliary disease. Is not seem related to peritoneal dialysis catheter placement. - Resolved # Chronic systolic CHF. Currently asymptomatic. # Prior aortic and mitral valve replacement, mechanical. # Ankylosing spondylitis, POA. Acetaminophen as needed. #Essential hypertension, POA. Resume metoprolol 25 mg, no change to medical plan otherwise. CODE STATUS: Patient is full resuscitation Discharge planning: Inpatient status, expect 2 more days Exam Vital Signs (Last) Date Time Temp Pulse Resp B/P Pulse Ox O2 Delivery O2 Flow Rate FiO2 04/06/17 08:48 75 04/06/17 07:30 37.5 18 113/72 98 Room Air 04/04/17 08:55 2.00 Exam General: no acute distress HEENT: sclerae anicteric, oral mucosa moist Chest: clear to auscultation Cardiac: S1S2, mechanical valve sounds, no murmur Abdomen: nontender, soft Neuro: A&O, cranial nerves symmetric, motor and coordination normal Test 03/27/17 09:00 04/05/17 08:23 04/06/17 06:50 04/06/17 08:45 White Blood Count 6.8th/mm3 (3.8-10.1) Red Blood Count 4.03mil/mm3 (4.40-5.80) Mean Corpuscular Volume 88.1fL (81-100) Mean Corpuscular Hemoglobin 30.3pg (27.0-35.0) Mean Corpuscular Hemoglobin Concent 34.4% (32.0-37.0) Red Cell Distribution Width 14.1% (12.3-15.4) Platelet Count 133bil/L (150-400) Neutrophils (%) (Auto) 80.7% (40-74) Lymphocytes (%) (Auto) 8.0% (14-46) Monocytes (%) (Auto) 9.6% (4-12) Eosinophils (%) (Auto) 0.7% (0-5) Basophils (%) (Auto) 0.4% (0-3) Sodium Level 137mEq/L (134-144) Potassium Level 4.6mEq/L (3.5-5.2) Chloride Level 97mEq/L (97-108) Carbon Dioxide Level 23mmol/L (18-29) Blood Urea Nitrogen 55mg/dL (6-24) Creatinine 3.56mg/dL (0.76-1.27) Estimat Glomerular Filtration Rate 19mL/min (>59) Glucose Level 103mg/dL (60-99) Calcium Level 9.5mg/dL (8.5-10.1) Magnesium Level 1.8mg/dL (1.6-2.6) Total Bilirubin 0.6mg/dL (0.0-1.2) Aspartate Amino Transf (AST/SGOT) 19U/L (0-50) Alanine Aminotransferase (ALT/SGPT) 12U/L (0-44) Alkaline Phosphatase 82U/L (25-150) Total Protein 6.7g/dL (6.4-8.4) Albumin 4.4g/dL (3.4-5.0) Hemoglobin 10.7g/dL (13.8-17.2) Hematocrit 33.1% (41.0-50.0) Prothrombin Time 30.6sec (8.1-12.5) Prothromb Time International Ratio 2.80ratio Activated Partial Thromboplast Time 104.2sec (22.8-33.0) Discharge Medications Discharge Medications ([metoprolol]) 25 MG PO BID (Reported) Twice daily on non dialysis days ([Metoprolol]) 25 PO DAILY (Reported) Once daily on dialysis days Tuesday, Tuesday and Tuesday Aspirin (Aspirin) 81 Mg Tablet 81 MG PO DAILY (Reported) Cholecalciferol (Vitamin D3) (Vitamin D) 1,000 Unit Capsule 2,000 UNIT PO DAILY (Reported) Folic Acid/Vitamin B Comp W-C (Triphrocaps Softgel) 1 Mg Capsule 1 CAPSULE PO DAILY (Reported) Furosemide (Furosemide) 80 Mg Tab 80 MG PO es,Th,Sat,Sun (Reported) Hydromorphone (Hydromorphone) 4 Mg Tablet 4 MG PO BID (Reported) Pantoprazole DR (Pantoprazole DR) 40 Mg Tablet.dr 40 MG PO DAILY (Reported) Warfarin Sodium (Warfarin Sodium) 7.5 Mg Tablet 7.5 MG PO DAILY (Reported) Additional med instructions We recommend that you alternate 10 mg and 7.5 mg warfarin until your INR stabilizes in the range of 2.5-3.5. You should have your INR checked on 04/07/17. Followup Plan Follow-up plan Contact the INR pro time clinic in the morning. Follow-up with dialysis Center as previously scheduled. Discharge Diet: Renal Diet Discharge Activity: No restrictions Patient Instructions Guidance and supplies for initiating peritoneal dialysis will be provided by the dialysis center. Please contact them after discharge. Continue your usual hemodialysis at this point. Follow-up Provider: Kirill López DO Follow-up with PCP in: Other (as needed) Time spent 20 minutes copies to: Kirill López Jeffrey W MD Apr 06, 2017 11:58
== END 2017-04-06 13:55 | disposition home or self-care (01) | DRG 981 ==
LOC: PCC 08:16 → EDSTATUS 03-29 10:45 → MOC 04-05 15:11
PROVIDERS: ADMIT Hospitalist; ATTEND Internal Medicine Cardiovascular Disease
PROC: 5A1D00Z (ICD-10-PCS; 2017-03-28)
PROC: 0WHG43Z Insertion of Infusion Device into Peritoneal Cavity, Percutaneous Endoscopic Approach (ICD-10-PCS; principal; 2017-03-29 09:00)
PROC: 5A1D00Z (ICD-10-PCS; 2017-03-30)
PROC: 5A1D00Z (ICD-10-PCS; 2017-04-01)
PROC: 5A1D00Z (ICD-10-PCS; 2017-04-04)
PROC: 5A1D00Z (ICD-10-PCS; 2017-04-06)
DX: I13.2 Hypertensive heart and chronic kidney disease with heart failure and with stage 5 chronic kidney disease, or end stage renal disease (principal); N18.6 End stage renal disease; I50.22 Chronic systolic (congestive) heart failure; Z95.2 Presence of prosthetic heart valve; Z79.01 Long term (current) use of anticoagulants; I48.0 Paroxysmal atrial fibrillation; Z95.810 Presence of automatic (implantable) cardiac defibrillator; G47.33 Obstructive sleep apnea (adult) (pediatric); Z99.2 Dependence on renal dialysis; I42.8 Other cardiomyopathies; K59.00 Constipation, unspecified; R79.1 Abnormal coagulation profile